=== PATIENT | female | born 1995 | race Caucasian/White ===

== ENCOUNTER 2017-07-07 20:50 | Emergency (ER) | payer OTHER ==
[2017-07-07 21:09] VITALS: RESP 18
--- NOTE | 2017-07-07 21:49 | ED ---
Seizure HPI - General Chief Complaint: Seizure Stated Complaint: weakness,poss seizure Time Seen by Provider: 07/07/17 21:39 Source: patient, EMS Mode of arrival: EMS Limitations: no limitations - History of Present Illness Initial Comments: This patient is 22-year-old woman who is here with her parents after she had a seizure. History is slightly limited as they continuously request transfer to [facility] as they are certain that she needs immediate shunt revision and they request to curtail evaluation here. The patient states that she was asymptomatic until having seizure tonight. The seizure occurred at 7:20 PM. Parents state that the last time that this happened she required shunt revision. Patient denies having any headache preceding. No fevers or chills. No neck pain or stiffness. No neurologic symptoms. MD Complaint: seizure Onset/Timin -: hour(s) Description of Episode: loss of consciousness -: minutes(s) Witnessed: yes - by bystander Trauma: No Seizure History: known seizure disorder Place: home Possible Precipitating Event: none Associated Symptoms: denies other symptoms Treatments Prior to Arrival: none - Related Data Home Medications Medication Instructions Recorded Confirmed HYDROcodone/APAP 5-325MG [[place] 1 tab PO BID PRN 07/07/17 07/07/17 5-325] Allergies Allergy/AdvReac Type Severity Reaction Status Date / Time gabapentin [From Neurontin] Allergy Swelling Verified 07/07/17 21:10 latex Allergy Rash/Hives Verified 07/07/17 21:10 phenytoin [From Dilantin] Allergy Rash/Hives Verified 07/07/17 21:10 Review of Systems ROS Statement: Those systems with pertinent positive or pertinent negative responses have been documented in the HPI. ROS Other: All systems not noted in ROS Statement are negative. 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 Absent: tenderness, meningismus Respiratory exam: Present: normal lung sounds bilaterally. Absent: respiratory distress, wheezes, rales, rhonchi, stridor Cardiovascular Exam: Present: regular rate (Rate 92 exam), normal rhythm, normal heart sounds. Absent: systolic murmur, diastolic murmur, rubs, gallop GI/Abdominal exam: Present: soft. Absent: distended, tenderness, guarding, rebound, rigid, mass Extremities exam: Present: normal inspection, normal capillary refill. Absent: pedal edema, calf tenderness Back exam: Present: normal inspection Neurological exam: Present: alert, oriented X3, CN II-XII intact. Absent: motor sensory deficit Skin exam: Present: warm, dry, intact, normal color. Absent: rash Course Vital Signs 07/07/17 07/07/17 21:02 22:29 Temperature 97.9 F 99.5 F Pulse Rate 106 H 122 H Respiratory 18 18 Rate Blood Pressure 136/76 128/73 O2 Sat by Pulse 100 99 Oximetry Medical Decision Making - Medical Decision Making Patient is 22-year-old woman presenting with a seizure, and family states that this is the same presentation she was having last time she had a shunt malfunction. Case discussed with the head stock transfer clerk at [facility]. They were able to reach her neurosurgeon, Dr. Madrigal, and will accept the patient for transfer there to have shunt evaluation. Patient and family did refuse other workup here. Disposition Clinical Impression: Generalized seizure Disposition: OTHER INSTITUTION NOT DEFINED Condition: Undetermined Instructions: Recurrent Seizures in Adults (ED) Is patient prescribed a controlled substance at d/c from ED?: No Referrals: Tigist Parker DO [Primary Care Provider] - 1-2 days - Out of Hospital Transfer - Req. Specs Out of Hospital Transfer - Requested Specifics: Other Emergency Center
[2017-07-07 22:36] VITALS: BP 128/73; PULSE 122; TEMP 99.5
== END 2017-07-07 22:48 | disposition other institution (70) ==
LOC: EC 20:50
DX: R56.9 Unspecified convulsions (principal); Z88.8 Allergy status to other drugs, medicaments and biological substances; Z91.040 Latex allergy status; Z98.2 Presence of cerebrospinal fluid drainage device
CPT/HCPCS: 99284

== ENCOUNTER → 2019-12-27 | Outpatient (CLI) | payer OTHER ==
--- NOTE | 2019-12-27 16:06 | XR ---
EXAMINATION TYPE: XR chest 2V DATE OF EXAM: 12/27/2019 COMPARISON: None INDICATION: Pain after fall TECHNIQUE: Frontal and lateral views of the chest are obtained. FINDINGS: The heart size is normal. The pulmonary vasculature is normal. The lungs are clear. No pneumothorax is evident. No displaced rib fractures are identified. IMPRESSION: 1. No acute pulmonary process.
--- NOTE | 2019-12-27 16:07 | XR ---
EXAMINATION TYPE: XR ribs LT DATE OF EXAM: 12/27/2019 COMPARISON: Chest x-ray same date HISTORY: Fall, pain TECHNIQUE: Two-view left RIBS FINDINGS: No acute displaced fractures are evident. No pneumothorax is evident on these images. IMPRESSION: 1. Normal two-view left RIBS
--- NOTE | 2019-12-27 16:08 | XR ---
EXAMINATION TYPE: XR shoulder complete LT DATE OF EXAM: 12/27/2019 COMPARISON: NONE HISTORY: Pain TECHNIQUE: Shoulder examined in 3 views FINDINGS: The humeral head articulates with the glenoid. The acromio-clavicular junction is normal. No acute fractures or dislocations are evident. A follow up study can be performed 7-10 days from acute trauma for continued pain. IMPRESSION: 1. Normal three-view left Shoulder
--- NOTE | 2019-12-27 16:08 | XR ---
EXAMINATION TYPE: XR lumbar spine 2 or 3V DATE OF EXAM: 12/27/2019 COMPARISON: None HISTORY: Fall, pain TECHNIQUE: Three-view lumbar spine FINDINGS: There 5 lumbar-type vertebral bodies. Pedicles are intact. Disc heights are preserved. Vert ebral body heights are preserved. There is a catheter present in the lower lumbar spine region. IMPRESSION: 1. No acute osseous abnormality lumbar spine
== END | disposition home or self-care (01) ==
LOC: RADXRMAIN 15:23
PROVIDERS: ATTEND Emergency Medicine
DX: S46.012A Strain of muscle(s) and tendon(s) of the rotator cuff of left shoulder, initial encounter (principal); S29.012A Strain of muscle and tendon of back wall of thorax, initial encounter; S39.012A Strain of muscle, fascia and tendon of lower back, initial encounter
CPT/HCPCS: 71046; 72100

== ENCOUNTER → 2020-01-06 | Outpatient (CLI) | payer OTHER ==
--- NOTE | 2020-01-06 19:43 | CT ---
EXAMINATION TYPE: CT brain wo/w con DATE OF EXAM: 01/06/2020 COMPARISON: None HISTORY: lump to posterior head, no injury CT DLP: 1891 mGycm Automated Exposure Control for Dose Reduction was Utilized. TECHNIQUE: CT scan of the head is performed with IV contrast.,CT scan of the head is performed withou t and with without and with IV Contrast, patient injected with 100 mL of Isovue 300. CLINICAL HISTORY: Palpable abnormality posteriorly COMPARISON: None. FINDINGS: Noncontrast images show no acute intracranial hemorrhage or midline shift. The ventricles and sulci are within normal limits in size. Postcontrast images show no suspicious enhancing intrapa renchymal mass. The globes are intact and the visualized sinuses are clear. There is a area of low at tenuation in the right parietal lobe extending from the right lateral ventricle which may be replaced previous encephalomalacia. There is a craniotomy defect on the left with a [employer] shunt catheter extending across the midline at the tip outside the lateral ventricle and should be correlated clinically. There is skin thickening sandi g the posterior lateral upper left calvarium which is nonspecific could be on the basis of previous s car. Correlate clinically. There is a more nodular mixed density extending off the posterior calvariu m on the left laterally which is of indeterminate etiology but appears to be chronic. Extends from th e periosteum and likely related to the [employer] shunt catheter IMPRESSION: 1. Postsurgical change with no evidence of hydrocephalus. Tip of the [employer] shunt appears to be outside o f the right lateral ventricle, correlate clinically. 2. Skin thickening along the posterior lateral left upper soft tissues likely on the basis of scar. M ore nodular extracranial density which opposes the periosteum of the left parietal bone posteriorly m ost likely is related to the [employer] shunt catheter. Correlate clinically to determine if this is the area of palpable abnormality. No history was given as to the exact location of the palpable abnormality.
== END | disposition home or self-care (01) ==
LOC: RADCTMAIN 18:14
PROVIDERS: ATTEND Family Medicine
DX: G43.009 Migraine without aura, not intractable, without status migrainosus (principal); Z98.2 Presence of cerebrospinal fluid drainage device
CPT/HCPCS: 70470; Q9967

== ENCOUNTER → 2020-02-06 | Outpatient (CLI) | payer OTHER ==
[2020-02-06 13:40] VITALS: BP 119/79; PULSE 80; RESP 16; TEMP 98.1
--- NOTE | 2020-02-06 14:03 | P.PAINCN ---
History of Present Illness - Reason for Consult Consult date: 02/06/20 - History of Present Illness This is a 24-year-old patient presented with a long-standing history of low back pain. She does have a complicated medical history, has a ventral peritoneal shunt which is now located in her lumbar spine at L4-5. Notes that she has had almost 100 brain and back surgeries involving her ventriculoperitoneal shunt. Pain is located in the low back and buttock area described as dull and aching with occasional sharp and stabbing. There is no radiation into her lower extremities. The pain tends it worse if she sits for long periods of time and taking one [place] 7.5 once a day seems to help with the pain. She does not endorse any weakness in her lower extremities. Has had her shunt looked at recently and there are no problems there is no plan for any interventions right now. In terms of management she saw [facility] who did a radiofrequency ablation at unknown levels in the lumbar spine which did not help at all. The medial branch blocks did provide relief, however she did not find any relief with the radiofrequency ablation. She has a trigger point injections in her upper back with a few days' relief. Hasn't physical therapy with no relief. As tried multitude of medications including Flexeril, Cymbalta, gabapentin none of which have helped her. Anti-inflammatory medications tend to make her stomach hurt quite a bit. Patient denies adverse drug effects from medications. Patient also denies new-onset weakness, bowel/bladder incontinence, or any other signs or symptoms of cauda equina syndrome. There are no signs of acute intoxication, and no i ndications of medication diversion or overuse. In addition to above, 13-point review of systems is also negative for chest pain, shortness of breath, changes in vision, changes in hearing, new onset weakness, abdominal pain, diarrhea, extreme fatigue, malaise, fever, skin changes, homicidal or suicidal ideation, or bowel or bladder incontinence. Physical exam: Vital Signs: Reviewed in EMR GENERAL: Well appearing, in no acute distress PSYCH: Mood and affect is appropriate. Awake, alert, and oriented SKIN: Skin color, texture, turgor normal, no rashes or lesions HEENT: Normocephalic, atraumatic. EOM intact CV: No pedal edema RESP: Respirations are unlabored, no audible wheezing GI: Abdomen non-distended MUSCULOSKELETAL: Bilateral upper and lower extremity strength is normal and symmetric. No atrophy or tone abnormalities are noted. Lumbar spine: Straight leg raising in the sitting position is negative for radicular pain. pain to palpation over the lumbar spine and paraspinous muscles. positive for pain with facet loading and back extension/rotation. Buttocks: pain to palpation over the PSIS, Oleksandr test is positive bilaterally Extremities: Peripheral joint ROM is full and pain free without obvious instability or laxity in all four extremities. No edema or skin discolorations noted. Gait: Gait is normal NEUR: Bilateral upper and lower extremity coordination and muscle stretch reflexes are physiologic and symmetric. Negative clonus. No loss of sensation is noted. Cranial nerves are grossly intact. Imaging: Lumbar Xray 12/2019 5 lumbar vertebral bodies. Disc heights are preserved. Vertebral body heights are preserved. Catheter present in the lower lumbar spine region. Shoulder X-ray 12/2019 Normal three-view left shoulder Assessment: 1. Low back pain 2. 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 Explanation: Diagnoses, prognoses, and multiple treatment options including but not limited to physical therapy, interventional therapies, medication management and surgery were discussed with the patient and all questions were answered to the patient's satisfaction. 2. Investigations: none 3. Counseling: The patient was counseled for 3 minutes on SMOKING CESSATION, BODY MASS INDEX, EXERCISE. Specifically, the patient was instructed regarding the importance of smoking cessation, weight control, and exercise in the context of both chronic pain and overall health. 4. Procedures: Proceed with bilateral SI joint injection. If these do not work we can consider cluneal nerve injection. I would not want to do any procedures involving her epidural space given that her shunt lies at the L4-L5 region 5. Consultations: None 6. Medications: This point she has tried so many medications and muscle resulted in adverse reactions such as sedation or drowsiness. Unclear what medications benefit for her, she is taking a very small amount of [place] which is helping her considerably 7. 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) brain shunt History of Any Multi-Drug Resistant Organisms: None Reported Additional Past Surgical History / Comment(s): brain shunt Past Psychological History: No Psychological Hx Reported Past Alcohol Use History: None Reported Past Drug Use History: None Reported Medications and Allergies Home Medications Medication Instructions Recorded Confirmed Type HYDROcodone/APAP 7.5-325MG [[place] 1 tab PO Q6HR PRN 02/06/20 02/06/20 History 7.5-325] Allergies Allergy/AdvReac Type Severity Reaction Status Date / Time gabapentin [From Neurontin] Allergy Swelling Verified 02/06/20 13:28 latex Allergy Rash/Hives Verified 02/06/20 13:28 phenytoin [From Dilantin] Allergy Rash/Hives Verified 02/06/20 13:28 PQRS Measure Charge Sheet PQRS Narrative: Smoking Status Never smoker Home Medications: Ambulatory Orders HYDROcodone/APAP 7.5-325MG [[place] 7.5-325] 1 tab PO Q6HR PRN 02/06/20
== END | disposition home or self-care (01) ==
LOC: PNWHC3 13:17
PROVIDERS: ATTEND Anesthesiology
DX: M46.1 Sacroiliitis, not elsewhere classified (principal); M54.5 Low back pain; Z98.2 Presence of cerebrospinal fluid drainage device
CPT/HCPCS: 99211

== ENCOUNTER 2020-02-28 05:58 | Day surgery (SDC) | payer OTHER ==
[2020-02-24 16:36] VITALS: BMI 27.3
[~2020-02-28 05:58] MED LIST: LACTATED RINGERS 1,000 ML IV SCH
[2020-02-28] MEDS ORDERED: LIDOCAINE 1% (10MG/ML) FOR IV START INTRADERMA ONE (06:30)
[2020-02-28 06:31] VITALS: RESP 16; TEMP 98.6
[2020-02-28] MEDS ORDERED: TRIAMCINOLONE ACETONIDE 40 MG/ML 1 ML VIAL ONE (06:55)
[2020-02-28] MEDS ORDERED: MIDAZOLAM 2 MG/2 ML VIAL ONE (06:55)
[2020-02-28] MEDS ORDERED: ROPIVACAINE 5MG/ML 20ML VIAL ONE (06:55)
--- NOTE | 2020-02-28 07:13 | P.PCN ---
Date of Procedure: 02/28/20 Surgeon: Alessio Rangel Pathology: none sent Condition: stable Disposition: PACU Description of Procedure: Preoperative diagnoses= sacroiliac joint dysfunction and sacroiliitis bilateral ly Postoperative diagnoses= same as preoperative diagnosis. Procedure= bilateral sacroiliac joint steroid injection under fluoroscopic guidance. Anesthesia= local anesthesia with lidocaine 1% and IV moderate conscious sedation with Versed only Estimated blood loss=minimal. Procedure indication= the patient had a history of severe chronic low back pain, diagnosed with sacroiliitis and lumbar sacral facet arthropathy unresponsive to conservative treatment. Procedure description= the patient was seen and identified in the preoperative holding area, risks and benefits and alternative of the procedure and possible complications discussed with the patient, patient signed the consent. an IV was started, and vital signs were monitored and were stable throughout the procedur e, patient was placed in the prone position or table and the lumbosacral area was prepped and draped with a sterile fashion, vital signs were closely monitored during the procedure.The sacroiliac joint was identified on the AP view of fluoroscopy then the C-arm was tilted to the contralateral oblique position to superimpose the anterior and posterior joint lines on each other and to have a unified joint line with the target point at the inferior one third of this line. I used 22-gauge 3-1/2 inch Quincke spinal needle for this procedure and after getting into the sacroiliac joint I injected 20 mg of Kenalog +2 MLS of Ropivacaine 0.5%. The opposite side was done in the same manner using also 20 mg of Kenalog. Patient tolerated the procedure well without any complication, The patient returned to supine position after the back was cleaned and a Band- Aid applied, the patient transported to recovery room in stable condition and he was monitored for 30 minutes before she was discharged home in stable condition . patient will follow up with the pain clinic in a few weeks. A copy of the needle placement was saved to the C-arm machine.
[2020-02-28] MEDS ORDERED: IV FLUID CONTINUATION 1,000 ML IV ONE ×2 (07:16)
[2020-02-28 07:34] VITALS: BP 120/84; PULSE 79
--- NOTE | 2020-02-28 12:27 | FL ---
Fluoroscopy HISTORY: Pain 7 seconds fluoroscopy time supplied to the referring clinician. 2 intraoperative C-arm images docume nt the procedure. See dictated report from anesthesia.
== END 2020-02-28 07:47 | disposition home or self-care (01) ==
LOC: ORPAIN 05:58
PROVIDERS: ATTEND Anesthesiology
DX: G89.29 Other chronic pain (principal); M46.1 Sacroiliitis, not elsewhere classified; M53.3 Sacrococcygeal disorders, not elsewhere classified; M47.817 Spondylosis without myelopathy or radiculopathy, lumbosacral region; G40.909 Epilepsy, unspecified, not intractable, without status epilepticus; Z88.8 Allergy status to other drugs, medicaments and biological substances
CPT/HCPCS: 27096; 81025; J2250; J3301; J2795

== ENCOUNTER → 2020-05-07 | Outpatient (CLI) | payer OTHER ==
--- NOTE | 2020-05-08 14:53 | ECHOF ---
Referral Reason:R00.2 Palpitations, M54.5 Lower back pain MEASUREMENTS -------- HEIGHT: 154.9 cm WEIGHT: 60.8 kg BP: IVSd: 0.8 cm (0.6 - 1.1) LVIDd: 4.3 cm (3.9 - 5.3) LVPWd: 0.8 cm (0.6 - 1.1) IVSs: 1.1 cm LVIDs: 3.1 cm LVPWs: 1.4 cm RVIDd: 2.3 cm (< 3.3) LAESV Index (A-L): 25.14 ml/m Ao Diam: 2.8 cm (2.0 - 3.7) AV Cusp: 2.0 cm (1.5 - 2.6) EPSS: 0.7 cm MV E Paul: 0.70 m/s MV DecT: 220 ms MV A Paul: 0.71 m/s MV E/A Ratio: 0.99 RAP: 5.00 mmHg RVSP: 13.19 mmHg MV EF SLOPE: 107.20 mm/s (70 - 150) MV EXCURSION: 22.91 mm (> 18.000) FINDINGS -------- Sinus rhythm. This was a technically good study. LV size, wall thickness and systolic function are normal, with an EF greater than 55%. The left neelam tricular size is normal. The right ventricle is normal in size. Normal LA size by volume 22+/-6 ml/m2. The right atrial size is normal. The aortic valve is trileaflet, and appears structurally normal. No aortic stenosis or regurgitation. Mild mitral regurgitation is present. Mild tricuspid regurgitation present. The right ventricular systolic pressure, as measured by Doppl er, is 13.19mmHg. There is no pulmonic regurgitation present. The aortic root size is normal. There is no pericardial effusion. CONCLUSIONS -------- 1. LV size, wall thickness and systolic function are normal, with an EF greater than 55%. 2. The left ventricular size is normal. 3. The right ventricle is normal in size. 4. Normal LA size by volume 22+/-6 ml/m2. 5. The right atrial size is normal. 6. The aortic valve is trileaflet, and appears structurally normal. No aortic stenosis or regurgitati on. 7. Mild mitral regurgitation is present. 8. Mild tricuspid regurgitation present. 9. The right ventricular systolic pressure, as measured by Doppler, is 13.19mmHg. 10. The aortic root size is normal. 11. There is no pericardial effusion. PLANT TECHNICAL SPECIALIST: Jacquelyn Ross RDCS
== END | disposition home or self-care (01) ==
LOC: RADECHMAIN 13:40
PROVIDERS: ATTEND Family Medicine
DX: I08.1 Rheumatic disorders of both mitral and tricuspid valves (principal); Z82.41 Family history of sudden cardiac death
CPT/HCPCS: 93306

== ENCOUNTER 2020-06-24 08:32 | Emergency (ER) | payer OTHER ==
[2020-06-24] MEDS ORDERED: ACETAMINOPHEN TAB 500 MG TAB PO STA (08:45)
[2020-06-24] MEDS ORDERED: SODIUM CHLORIDE 0.9% 1,000 ML IV STA (08:47)
--- NOTE | 2020-06-24 08:49 | ED ---
General Adult HPI - General Chief complaint: Back Pain/Injury Stated complaint: Back Pain, shunt in back Time Seen by Provider: 06/24/20 08:38 Source: patient Mode of arrival: wheelchair Limitations: physical limitation - History of Present Illness Initial comments: Dictation was produced using [employer] dictation software. please excuse any grammatical, word or spelling errors. This patient was cared for during a federal and state declared state of emergency secondary to Covid 19 Chief Complaint: 25-year-old male past medical history of chronic pain, CSF shunt presents with fever and lower back pain History of Present Illness: A 25-year-old female she states for the last several days she's been having worsening back pain. Patient states she has severe pain in her back. She does have history of a pain device in that area. She has history of chronic pain. States that she also has been having constitutional symptoms. States that her pain is really bad whenever she tries to ambulate. She denies any numbness [place] or weakness to her lower extremities. Patient also complains of lymphadenopathy to the left submandibular area. She also has sore throat that is mostly worse when she tries to swallow. He does not have any drooling. She doesn't have any respiratory symptoms. No runny nose. Denies any cough or shortness of breath. No abdominal pain. Denies any urinary symptoms. The ROS documented in this emergency department record has been reviewed and confirmed by me. Those systems with pertinent positive or negative responses have been documented in the HPI. All other systems are other negative and/or noncontributory. PHYSICAL EXAM: General Impression: Alert and oriented x3, not in acute distress HEENT: Normocephalic atraumatic, extra-ocular movements intact, pupils equal and reactive to light bilaterally, mucous membranes moist. Cardiovascular: Heart regular rate and rhythm Chest: Able to complete full sentences, no retractions, no tachypnea Abdomen: abdomen soft, non-tender, non-distended, no organomegaly Musculoskeletal: Pulses present and equal in all extremities, no peripheral edema Back: Surgical scar is clean dry intact, no midline palpatory tenderness Motor: no focal deficits noted Neurological: CN II-XII grossly intact, no focal motor or sensory deficits noted Skin: Intact with no visualized rashes Psych: Normal affect and mood ED course: 25-year-old female presents with constitutional symptoms and lower back pain signs upon arrival shows temperature 102.3, heart rate of 130. Laboratory evaluation obtained. Leukocytosis of 14.7. Metabolic panel shows no acute processes. CRP elevated at 73.8. Urinalysis negative for infection. Influenza A, B, RSV and [place] 19 are negative. Chest x-ray is nonacute. Computed tomography scan of the abdomen and pelvis was obtained with contrast. There is demonstration of left-sided lumbar peritoneal shunt with ascitic fluid near the distal end of the shunt catheter. There is a 1.3 cm recently ruptured follicle of the left ovary. There are a few hepatic lesions. There is also findings of enteritis versus mild ileus. Patient given Tylenol. Repeat vital signs shows improvement of pyrexia. Patient reevaluated at bedside. She reports some slight improvement. Given that there is no other obvious signs of patient's fever there is concern that she has an infectious spinal process. We do not have MRI available at our facility. Patient states she does have a history of infected shunt issues. Case is discussed with Dr. 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 Salas. Dr. Crouch requested patient be transferred to the ED at [facility]. Accepting ER physician is Dr. Holbrook. Patient started on vancomycin and Zosyn. She is agreeable with disposition plan. - Related Data Home Medications Medication Instructions Recorded Confirmed HYDROcodone/APAP 7.5-325MG [[place]bury 1 tab PO DAILY PRN 02/06/20 06/24/20 7.5-325] Escitalopram [Lexapro] 10 mg PO DAILY 06/24/20 06/24/20 Meloxicam [Mobic] 15 mg PO DAILY 06/24/20 06/24/20 Allergies Allergy/AdvReac Type Severity Reaction Status Date / Time gabapentin [From Neurontin] Allergy Swelling Verified 06/24/20 11:01 latex Allergy Rash/Hives Verified 06/24/20 11:01 phenytoin [From Dilantin] Allergy Rash/Hives Verified 06/24/20 11:01 Review of Systems ROS Statement: Those systems with pertinent positive or pertinent negative responses have been documented in the HPI. ROS Other: All systems not noted in ROS Statement are negative. 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 pat gpa brain tumor General Exam Limitations: physical limitation Course Vital Signs 06/24/20 06/24/20 08:36 10:47 Temperature 102.3 F H 98.3 F Pulse Rate 130 H 82 Respiratory 20 18 Rate Blood Pressure 105/67 105/61 O2 Sat by Pulse 98 97 Oximetry Medical Decision Making - Lab Data Result diagrams: 06/24/20 09:04 06/24/20 09:04 Lab Results 06/24/20 06/24/20 06/24/20 Range/Units 09:04 09:04 09:04 WBC 14.7 H (3.8-10.6) k/uL RBC 4.87 (3.80-5.40) m/uL Hgb 14.4 (11.4-16.0) gm/dL Hct 42.6 (34.0-46.0) % MCV 87.4 (80.0-100.0) fL MCH 29.7 (25.0-35.0) pg MCHC 33.9 (31.0-37.0) g/dL RDW 12.4 (11.5-15.5) % Plt Count 154 (150-450) k/uL MPV 9.1 Neutrophils % 92 % Lymphocytes % 4 % Monocytes % 4 % Eosinophils % 0 % Basophils % 0 % Neutrophils # 13.5 H (1.3-7.7) k/uL Lymphocytes # 0.5 L (1.0-4.8) k/uL Monocytes # 0.6 (0-1.0) k/uL Eosinophils # 0.0 (0-0.7) k/uL Basophils # 0.0 (0-0.2) k/uL Sodium (137-145) mmol/L Potassium (3.5-5.1) mmol/L Chloride (98-107) mmol/L Carbon Dioxide (22-30) mmol/L Anion Gap mmol/L BUN (7-17) mg/dL Creatinine (0.52-1.04) mg/dL Est GFR (CKD-EPI)AfAm (>60 ml/min/1.73 sqM) Est GFR (CKD-EPI)NonAf (>60 ml/min/1.73 sqM) Glucose (74-99) mg/dL Calcium (8.4-10.2) mg/dL Total Bilirubin (0.2-1.3) mg/dL AST (14-36) U/L ALT (4-34) U/L Alkaline Phosphatase (38-126) U/L C-Reactive Protein (<10.0) mg/L Total Protein (6.3-8.2) g/dL Albumin (3.5-5.0) g/dL Urine Color Yellow Urine Appearance Clear (Clear) Urine pH 5.0 (5.0-8.0) Ur Specific [place] 1.026 (1.001-1.035) Urine Protein Trace H (Negative) Urine Glucose (UA) Negative (Negative) Urine Ketones 1+ H (Negative) Urine Blood Moderate H (Negative) Urine Nitrite Negative (Negative) Urine Bilirubin Negative (Negative) Urine Urobilinogen <2.0 (<2.0) mg/dL Ur Leukocyte Esterase Trace H (Negative) Urine RBC 1 (0-5) /hpf Urine WBC 2 (0-5) /hpf Ur Squamous Epith Cells 4 (0-4) /hpf Urine Bacteria Few H (None) /hpf Urine Mucus Rare H (None) /hpf Urine HCG, Qual Not Detected (Not Detectd) Influenza Type A (PCR) (Not Detectd) Influenza Type B (PCR) (Not Detectd) RSV (PCR) (Not Detectd) SARS-CoV-2 (PCR) (Not Detectd) 06/24/20 06/24/20 Range/Units 09:04 09:04 WBC (3.8-10.6) k/uL RBC (3.80-5.40) m/uL Hgb (11.4-16.0) gm/dL Hct (34.0-46.0) % MCV (80.0-100.0) fL MCH (25.0-35.0) pg MCHC (31.0-37.0) g/dL RDW (11.5-15.5) % Plt Count (150-450) k/uL MPV Neutrophils % % Lymphocytes % % Monocytes % % Eosinophils % % Basophils % % Neutrophils # (1.3-7.7) k/uL Lymphocytes # (1.0-4.8) k/uL Monocytes # (0-1.0) k/uL Eosinophils # (0-0.7) k/uL Basophils # (0-0.2) k/uL Sodium 135 L (137-145) mmol/L Potassium 3.6 (3.5-5.1) mmol/L Chloride 100 (98-107) mmol/L Carbon Dioxide 23 (22-30) mmol/L Anion Gap 12 mmol/L BUN 13 (7-17) mg/dL Creatinine 0.67 (0.52-1.04) mg/dL Est GFR (CKD-EPI)AfAm >90 (>60 ml/min/1.73 sqM) Est GFR (CKD-EPI)NonAf >90 (>60 ml/min/1.73 sqM) Glucose 111 H (74-99) mg/dL Calcium 8.9 (8.4-10.2) mg/dL Total Bilirubin 1.1 (0.2-1.3) mg/dL AST 21 (14-36) U/L ALT 20 (4-34) U/L Alkaline Phosphatase 49 (38-126) U/L C-Reactive Protein 73.8 H (<10.0) mg/L Total Protein 7.2 (6.3-8.2) g/dL Albumin 4.4 (3.5-5.0) g/dL Urine Color Urine Appearance (Clear) Urine pH (5.0-8.0) Ur Specific [place] (1.001-1.035) Urine Protein (Negative) Urine Glucose (UA) (Negative) Urine Ketones (Negative) Urine Blood (Negative) Urine Nitrite (Negative) Urine Bilirubin (Negative) Urine Urobilinogen (<2.0) mg/dL Ur Leukocyte Esterase (Negative) Urine RBC (0-5) /hpf Urine WBC (0-5) /hpf Ur Squamous Epith Cells (0-4) /hpf Urine Bacteria (None) /hpf Urine Mucus (None) /hpf Urine HCG, Qual (Not Detectd) Influenza Type A (PCR) Not Detected (Not Detectd) Influenza Type B (PCR) Not Detected (Not Detectd) RSV (PCR) Not Detected (Not Detectd) SARS-CoV-2 (PCR) Not Detected (Not Detectd) Disposition Clinical Impression: Fever, Back pain Disposition: OTHER INSTITUTION NOT DEFINED Condition: Fair Referrals: Alex Ramirez DO [Primary Care Provider] - 1-2 days Time of Disposition: 11:29 - Out of Hospital Transfer - Req. Specs Out of Hospital Transfer - Requested Specifics: Other Emergency Center ([facility])
[2020-06-24 09:25] LABS: Appearance,Urine Clear (Clear); Bacteria,Urine Few /hpf; Bilirubin,Urine Negative (Negative); Blood,Urine Moderate (Negative); Color,Urine Yellow; Glucose,Urine (UA) Negative (Negative); Ketones,Urine 1+ (Negative); Leukocyte Esterase,Urine Trace (Negative); Mucus,Urine Rare /hpf; Nitrite,Urine Negative (Negative); Protein,Urine Trace (Negative); RBC,Urine 1 /hpf (0-5); Specific Gravity,Urine 1.026 (1.001-1.035); Squamous Epithelial Cell,Urine 4 /hpf (0-4); Urobilinogen,Urine <2.0 mg/dL (<2.0); WBC,Urine 2 /hpf (0-5)
[2020-06-24 09:31] LABS: ALT 20 U/L (4-34); AST 21 U/L (14-36); African American GFR (CKD) >90 (>60 ml/min/1.73 sqM); Albumin 4.4 g/dL (3.5-5.0); Alkaline Phosphatase 49 U/L (38-126); Anion Gap 12 mmol/L; Blood Urea Nitrogen 13 mg/dL (7-17); C Reactive Protein 73.8 mg/L (<10.0); Calcium 8.9 mg/dL (8.4-10.2); Carbon Dioxide 23 mmol/L (22-30); Chloride 100 mmol/L (98-107); Glucose 111 mg/dL (74-99); Non-African American GFR(CKD) >90 (>60 ml/min/1.73 sqM); Potassium 3.6 mmol/L (3.5-5.1); Sodium 135 mmol/L (137-145); Total Bilirubin 1.1 mg/dL (0.2-1.3); Total Protein 7.2 g/dL (6.3-8.2)
--- NOTE | 2020-06-24 09:33 | XR ---
EXAMINATION TYPE: XR chest 1V portable DATE OF EXAM: 06/24/2020 COMPARISON: 12/27/2019. HISTORY: Fever. TECHNIQUE: Single frontal view of the chest is obtained. FINDINGS: There is no focal air space opacity, pleural effusion, or pneumothorax seen. The cardiac silhouette size is within normal limits. The osseous structures are intact. IMPRESSION: No acute process.
[2020-06-24 09:50] LABS: Basophils % (A) 0 %; Eosinophils % (A) 0 %; HCT 42.6 % (34.0-46.0); HGB 14.4 gm/dL (11.4-16.0); Lymphocytes # (A) 0.5 k/uL (1.0-4.8); Lymphocytes % (A) 4 %; MCH 29.7 pg (25.0-35.0); MCHC 33.9 g/dL (31.0-37.0); MCV 87.4 fL (80.0-100.0); Mean Platelet Volume 9.1; Monocytes # (A) 0.6 k/uL (0-1.0); Monocytes % (A) 4 %; Neutrophils # (A) 13.5 k/uL (1.3-7.7); Neutrophils % (A) 92 %; Platelet Count 154 k/uL (150-450); RBC 4.87 m/uL (3.80-5.40); RDW 12.4 % (11.5-15.5); WBC 14.7 k/uL (3.8-10.6)
[2020-06-24] MEDS ORDERED: MORPHINE SULFATE 4 MG/ML SYRINGE IV STA (09:50)
[2020-06-24 10:51] VITALS: BP 105/61; PULSE 82; RESP 18; TEMP 98.3
--- NOTE | 2020-06-24 11:00 | CT ---
EXAMINATION TYPE: CT abdomen pelvis w con DATE OF EXAM: 06/24/2020 COMPARISON: None HISTORY: 25-year-old female Fever, back pain TECHNIQUE: Contiguous axial scanning of the abdomen and pelvis following administration of 100 ml Iso renny 300 IV contrast. Delayed images through the kidneys and coronal/sagittal reconstructions perform ed. CT DLP: 635.7 mGycm Automated exposure control for dose reduction was used. FINDINGS: Heart normal size without pericardial effusion. Lung bases clear without pleural effusion. Hypodense 2.7 cm left hepatic dome lesion does not clearly show any enhancement on the delayed kidney images. It has intermediate attenuation suggesting a possible complicated cyst. 1 cm right hepatic d ome lesion could be the same. 1.4 cm anterior mid liver lesion becomes less apparent on the delayed k idney images, possible hemangioma. Portal venous system is patent. No biliary ductal dilatation. Gallbladder, adrenal glands, kidneys, spleen, and pancreas appear within normal limits. Symmetric upt jonatan and excretion of contrast from both kidneys. Mild diffuse fold thickening along the gastric fundus and body may be due to nondistention. No dilated small bowel or free air. Normal appendix visualized. Moderate stool in the right side of t he colon. No pericolonic inflammatory change. Some scattered air-fluid levels in mid and lower abdominal small bowel loops. A left-sided lumbar per itoneal shunt catheter is present. It is looped multiple times in the pelvis or moderate ascites flui d is present. Bladder is nondistended. Uterus is anteverted. Peripherally enhancing cystic structure measuring 1.3 cm and the left ovary suggesting a recently ruptured follicle or functional cyst. Follicular changes in the right ovary. No pelvic lymphadenopathy seen. A shunt catheter enters the spinal canal at the L1-L2 right interlaminar space. No abnormal fluid col lection is seen along the subcutaneous course of the catheter. Bones: No osseous destructive process. IMPRESSION: 1. LEFT-SIDED LUMBAR PERITONEAL SHUNT CATHETER. THE CATHETER IS LOOPED MULTIPLE TIMES IN THE PELVIS. THE SUBCUTANEOUS COURSE OF THE CATHETER HAS NO ABNORMAL FLUID COLLECTION ALONG ITS LENGTH. 2. MODERATE PELVIC ASCITES FLUID COULD IN PART BE PHYSIOLOGIC OR COULD BE A CONSEQUENCE OF THE SHUNT CATHETER. 3. A 1.3 CM RECENTLY RUPTURED FOLLICLE OR FUNCTIONAL CYST OF THE LEFT OVARY. 4. MILD DIFFUSE FOLD THICKENING ALONG THE GASTRIC FUNDUS AND BODY MAY BE DUE TO NONDISTENTION OR RADHA RITIS. 5. A FEW HEPATIC LESIONS MEASURING UP TO 2.7 CM, PROBABLY HEMANGIOMAS OR COMPLICATED CYSTS. OTHER ZEE OLOGY NOT EXCLUDED AT THIS TIME. NONEMERGENT FOLLOW-UP DYNAMIC CONTRAST ENHANCED LIVER MRI CAN FURTHE R ASSESS. 6. NONOBSTRUCTIVE BOWEL GAS PATTERN BUT WITH SOME SCATTERED SMALL BOWEL AIR-FLUID LEVELS IN THE MID A ND LOWER ABDOMEN COULD REPRESENT AN ENTERITIS OR MILD ILEUS.
[2020-06-24] MEDS ORDERED: VANCOMYCIN IV PER PHARMACY 1 EACH MISC MISCELLANE PRN (11:04)
[2020-06-24] MEDS ORDERED: PIPERACILLIN-TAZOBACTAM 3.375 GM in SODIUM CHLORIDE 0.9% 100 ML IVPB STA (11:05)
[2020-06-24] MEDS ORDERED: VANCOMYCIN 1,250 MG in SODIUM CHLORIDE 0.9% 250 ML IVPB ONE (11:15)
[2020-06-24 12:19] LABS: Erythrocyte Sedimentation Rate 12 mm/hr (0-20)
[2020-06-24] MEDS ORDERED: VANCOMYCIN 1,250 MG in SODIUM CHLORIDE 0.9% 250 ML IVPB SCH (23:00)
== END 2020-06-24 12:24 | disposition other institution (70) ==
LOC: EC 08:32
DX: R50.9 Fever, unspecified (principal); M54.5 Low back pain; Z79.1 Long term (current) use of non-steroidal anti-inflammatories (NSAID); Z79.899 Other long term (current) drug therapy; Z88.8 Allergy status to other drugs, medicaments and biological substances; Z91.040 Latex allergy status
CPT/HCPCS: 99285; 96365; 96367; 96375; 96361; 36415; 80053; 85652; 85025; 86140; 81001; 81025; 87040; 87636; 71045; 74177; J2543; J3370; J2270; Q9967

== ENCOUNTER → 2020-07-17 | Outpatient (CLI) | payer OTHER ==
--- NOTE | 2020-07-17 14:20 | US ---
EXAMINATION TYPE: US pelvic complete DATE OF EXAM: 07/17/2020 COMPARISON: CT June 24, 2020 CLINICAL HISTORY: N83.202 Ovarian cyst, left side.Left ovarian cyst of 1.3cm was seen on recent CT. P atient stated left sided pain has subsided and now has right sided pelvic pain x 2 days; TECHNIQUE: Transabdominal (TA). Transabdominal sonographic images of the pelvis were acquired. Date of LMP: 06/28/2020 EXAM MEASUREMENTS: Uterus: 8.1 x 4.7 x 3.7 cm Endometrial Stripe: 1.2 cm Right Ovary: 4.7 x 4.1 x 3.9 cm Left Ovary: 3.4 x 2.2 x 2.5 cm 1. Uterus: Anteverted 2. Endometrium: thickness is wnl for day 19 LMP 3. Right Ovary: enlarged ovary with complex ovarian cyst = 3.9 x 3.4 x 3.5cm. 4. Left Ovary: small follicular cysts seen today Spectral, color and waveform Doppler imaging shows good arterial and venous flow within the ovaries . 5. Bilateral Adnexa: wnl 6. Posterior cul-de-sac: wnl Heterogeneous anteverted uterus. Endometrial stripe measures within normal limits for last known mens trual period June 28. No free fluid in pelvis. Both ovaries are seen, right slightly larger than left. There is 3.9 cm slightly irregular cystic les ion right ovary with reticular avascular internal material. IMPRESSION: New 3.9 cm hemorrhagic cyst right ovary is felt present. Orads 2 lesion. Almost certainly benign.
== END | disposition home or self-care (01) ==
LOC: RADUSWWP 13:41
PROVIDERS: ATTEND Family Medicine
DX: N83.202 Unspecified ovarian cyst, left side (principal)
CPT/HCPCS: 76856

== ENCOUNTER → 2020-07-20 | Outpatient (CLI) | payer OTHER ==
--- NOTE | 2020-07-23 11:56 | MR ---
EXAMINATION TYPE: MR abdomen wo/w con DATE OF EXAM: 07/20/2020 COMPARISON: CT abdomen and pelvis June 24, 2020 HISTORY: Neoplasm of uncertain behavior of liver. Abnormal CT, liver lesions. CONTRAST: Standard multiplanar, multisequence MRI departmental protocol utilizing 6.5 mL intravenous Gadavist g adolinium contrast. Imaging performed of the abdomen focusing on the liver. FINDINGS: Liver: Liver is overall upper limits of normal in size. Corresponding to CT there are several lesions identified. Largest in the lateral segment left hepatic dome has slightly lobulated contour measurin g 2.6 x 2.5 cm with T1 hypointensity and T2 hyperintensity, there is slight nodular progressive perip heral enhancement on dynamic postcontrast images, relatively slow filling, findings consistent with b enign hemangioma. Similar findings are seen in the right hepatic lobe 1.7 x 1.6 cm lesion coronal graciela ge 6. There is third lesion with some delayed peripheral and linear enhancement right hepatic lobe an teriorly measuring 1.1 cm coronal image 12. Finally there is a 3 mm nonenhancing lesion right hepatic lobe image 42 series 1201 2 small to further characterize presumed benign. No significant signal andrez pout in the liver. No biliary dilatation. No surrounding ascites. Patent hepatic veins draining into IVC. Patent main portal vein Other: Lung bases are clear. The spleen, pancreas, both adrenal glands are within normal limits. No c oncerning renal mass or hydronephrosis. Patient has little intra-abdominal fat. No bowel dilatation. No AAA. Visualized osseous structures are intact. IMPRESSION: There are 3 liver lesions measuring up to 2.6 cm in size, dynamic postcontrast MRI is con sistent with benign hemangiomas slightly atypical with more delayed filling than normal noted. There are still presumed benign. No worrisome solid or cystic intrahepatic mass noted.
== END | disposition home or self-care (01) ==
LOC: RADMRIMAIN 19:59
PROVIDERS: ATTEND Physician Assistant Medical
DX: D37.6 Neoplasm of uncertain behavior of liver, gallbladder and bile ducts (principal); K76.9 Liver disease, unspecified
CPT/HCPCS: 74183; A9585

== ENCOUNTER → 2021-07-03 | Outpatient (CLI) | payer OTHER ==
--- NOTE | 2021-07-03 19:07 | CT ---
EXAMINATION TYPE: CT brain wo/w con DATE OF EXAM: 07/03/2021 COMPARISON: CT dated 01/06/2020 HISTORY: h/o headaches and dizziness x2 weeks, h/o shunt placement CT DLP: 2196 mGycm Automated exposure control for dose reduction was used. TECHNIQUE: CT scan of the brain is performed without and with IV contrast administration. FINDINGS: Unchanged position of the known left transparietal STONE BELT SANDER shunt. Stable ventricular size without evidence of interval size progression or signs of ventricular obstruction. Stable small areas of encephalomal acia in the superior aspects of the parietal lobes, seen bilaterally. Incidental findings reduced farrah iber of the intracranial venous sinuses as compared to the previous CT scan, of unknown clinical sign ificance. No acute intracranial hemorrhage. No gross acute cortical infarct. No midline shift or herniation. Un remarkable basal cisterns, sella and CP angles. No gross space-occupying lesion, vasogenic edema or m ass effect. No area of abnormal enhancement, meningeal thickening or hyperenhancement. Unremarkable orbits. Clear visualized paranasal sinuses and mastoid air cells. Unremarkable remainder of the calvarial bones. IMPRESSION: Reduced caliber of the intracranial venous sinuses as compared to the previous CT scan, of unknown cl inical significance. Further neurology/neurosurgery consultation can be considered. No convincing sariah dence of venous sinus thrombosis. Otherwise stable condition as described above.
== END | disposition home or self-care (01) ==
LOC: RADCTMAIN 16:36
PROVIDERS: ATTEND Family Medicine
DX: R90.89 Other abnormal findings on diagnostic imaging of central nervous system (principal); G43.009 Migraine without aura, not intractable, without status migrainosus; Z98.2 Presence of cerebrospinal fluid drainage device
CPT/HCPCS: 70470; Q9967

== ENCOUNTER → 2021-12-05 | Outpatient (CLI) | payer OTHER ==
--- NOTE | 2021-12-06 08:08 | XR ---
EXAMINATION TYPE: XR chest 2V DATE OF EXAM: 12/05/2021 COMPARISON: NONE TECHNIQUE: PA and lateral views submitted. HISTORY: Cough FINDINGS: The lungs are clear and there is no pneumothorax, pleural effusion, or focal pneumonia. Heart size normal. No overt failure. IMPRESSION: 1. No acute process.
== END | disposition home or self-care (01) ==
LOC: RADXRYALE 16:58
PROVIDERS: ATTEND Physician Assistant
DX: R07.9 Chest pain, unspecified (principal); R05.9 Cough, unspecified
CPT/HCPCS: 71046

== ENCOUNTER → 2021-12-13 | Outpatient (CLI) | payer OTHER ==
--- NOTE | 2021-12-13 15:35 | XR ---
Lumbosacral spine HISTORY: Low back pain 5 views of lumbosacral spine correlated prior lumbar spine 12/27/2019 1 lumbar vertebral bodies show preserved height, alignment, and bone mineralization. Disc spaces are maintained. No evident spondylolysis. Postprocedural changes are again seen. Mild loss of disc height L5-S1. IMPRESSION: Essentially stable exam. Mild degenerative disc changes suspected.
== END | disposition home or self-care (01) ==
LOC: RADXRYALE 12:16
PROVIDERS: ATTEND Physician Assistant
DX: M54.50 Low back pain, unspecified (principal)
CPT/HCPCS: 72110

== ENCOUNTER 2022-08-11 10:03 | Outpatient (CLI) | payer OTHER ==
[2022-08-11] MEDS ORDERED: LACTATED RINGERS 1,000 ML IV SCH (10:30)
[2022-08-11 10:54] LABS: Basophils % (A) 0 %; Eosinophils # (A) 0.1 k/uL (0-0.7); Eosinophils % (A) 1 %; HCT 38.4 % (34.0-46.0); HGB 12.7 gm/dL (11.4-16.0); Lymphocytes # (A) 1.4 k/uL (1.0-4.8); Lymphocytes % (A) 15 %; MCH 29.1 pg (25.0-35.0); MCHC 33.2 g/dL (31.0-37.0); MCV 87.9 fL (80.0-100.0); Mean Platelet Volume 10.4; Monocytes # (A) 0.5 k/uL (0-1.0); Monocytes % (A) 5 %; Neutrophils # (A) 7.5 k/uL (1.3-7.7); Neutrophils % (A) 78 %; Platelet Count 220 k/uL (150-450); RBC 4.37 m/uL (3.80-5.40); RDW 13.2 % (11.5-15.5); WBC 9.6 k/uL (3.8-10.6)
--- NOTE | 2022-08-11 11:15 | US ---
EXAMINATION TYPE: US OB >= 14 wk fetus DATE OF EXAM: 08/11/2022 COMPARISON: None CLINICAL INDICATION: Female, 27 years old with history of Patient fall; Patient states she fell on he r side today. TECHNIQUE: Transabdominal (TA) GESTATIONAL AGE / DATING Physician Established: (33 weeks/0 days) EDC: 09/29/2022 Dates by Current Scan: (32 weeks/3 days) EDC: 10/03/2022 Beta HCG (if available): Not available at this time SURVEY IUP: Single PLACENTA: Fundal PREVIA: No Previa TAVO: 11.7 cm Normal CERVICAL LENGTH (transabdominal: norm > 3.0cm): 3.1 cm BIOMETRY PRESENTATION: Vertex BPD: 7.9 cm 31 weeks / 5 days HC: 28.7 cm 31 weeks / 4 days AC: 27.4 cm 31 weeks / 4 days FL: 6.8 cm 34 weeks / 6 days ESTIMATED WEIGHT IN GRAMS: 1992 grams ESTIMATED WEIGHT IN LBS/OZ: 4 lbs. 6 oz. 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 IMPRESSION: 1. Single live intrauterine with established gestational age of 33 weeks 0 days. Current ul trasound biometry is slightly smaller at 32 weeks 3 days (27% EFW). 2. Note that this exam was not performed as a survey. 3. Cephalic presentation. Fundal placenta.
[2022-08-11 12:36] VITALS: BP 115/55; PULSE 98; RESP 18; TEMP 97.6
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
== END 2022-08-11 11:45 | disposition home or self-care (01) ==
LOC: FBPOP 10:03
PROVIDERS: ATTEND Obstetrics & Gynecology
DX: O26.893 Other specified pregnancy related conditions, third trimester (principal); Z3A.33 33 weeks gestation of pregnancy; Z88.8 Allergy status to other drugs, medicaments and biological substances; Z91.040 Latex allergy status
CPT/HCPCS: 59025; 76805; 85025; 96360; 99215

== ENCOUNTER 2022-09-13 03:05 | Outpatient (CLI) | payer OTHER ==
[2022-09-13 04:50] VITALS: BP 129/78; PULSE 75; RESP 18; TEMP 97.3
[2022-09-13] MEDS ORDERED: NALBUPHINE 10 MG/ML (10 ML MDV) IV PRN (06:52)
[2022-09-13] MEDS ORDERED: LACTATED RINGERS 1,000 ML IV SCH (07:00)
[2022-09-13 07:38] LABS: HCT 41.4 % (34.0-46.0); HGB 13.8 gm/dL (11.4-16.0); MCH 29.6 pg (25.0-35.0); MCHC 33.4 g/dL (31.0-37.0); MCV 88.8 fL (80.0-100.0); Mean Platelet Volume 11.2; Platelet Count 196 k/uL (150-450); RBC 4.66 m/uL (3.80-5.40); RDW 14.2 % (11.5-15.5); WBC 13.4 k/uL (3.8-10.6)
[2022-09-13 07:47] LABS: Appearance,Urine Cloudy (Clear); Bilirubin,Urine Negative (Negative); Blood,Urine Small (Negative); Color,Urine Yellow; Glucose,Urine (UA) Negative (Negative); Ketones,Urine Negative (Negative); Leukocyte Esterase,Urine Small (Negative); Mucus,Urine Rare /hpf; Nitrite,Urine Negative (Negative); PH, Urine 6.5 (5.0-8.0); Protein,Urine Trace (Negative); RBC,Urine 1 /hpf (0-5); Specific Gravity,Urine 1.019 (1.001-1.035); Squamous Epithelial Cell,Urine 2 /hpf (0-4); Urobilinogen,Urine <2.0 mg/dL (<2.0); WBC,Urine 3 /hpf (0-5)
[2022-09-13 08:12] LABS: Large Platelets Present; Lymphocytes # (M) 1.34 k/uL (1.0-4.8); Monocytes # (M) 0.27 k/uL (0-1.0); Neutrophils # (M) 11.79 k/uL (1.3-7.7); Neutrophils % (M) 88 %; Nucleated Red Blood Cells 0 /100 WBC (0-0); Total Cells Counted 100
--- NOTE | 2022-09-16 13:11 | P.MSEPDOC ---
Presenting Problems - Arrival Data Date of Arrival on Unit: 09/13/22 Time of Arrival on Unit: 03:30 Mode of Transport: Wheelchair - Complaint OB-Reason for Admission/Chief Complaint: Possible Onset of Labor Comment: possible labor started 09/12/2022 at 1999 Medical History - Information : 1 Para: 0 Term: 0 : 0 Abortions: Spontaneous or Elective: 0 Number of Living Children: 0 - Gestational Age Gestational Age by WILMER (wks/days): 37 Weeks and 5 Days Review of Systems - Review of Systems Constitutional: No problems Breast: No problems ENT: No problems Cardiovascular: No problems Respiratory: No problems Gastrointestinal: No problems Genitourinary: No problems Musculoskeletal: No problems Neurological: No problems Skin: No problems Vital Signs - Temperature Temperature: 97.3 F Temperature Source: Oral - Pulse Left Lateral Pulse Rate: 75 Pulse Assessment Method: Automatic Cuff - Respirations Respiratory Rate: 18 Oxygen Delivery Method: Room Air - Blood Pressure Right Arm Blood Pressure: 129/78 Blood Pressure Mean: 95 Blood Pressure Source: Automatic Cuff Medical Screen Scoring - Cervical Exam Dilation (cm): 1 Effacement (%): 70 Station: 0 Membranes: Intact - Uterine Contractions Frequency From (mins): 3 Frequency To (mins): 5 Intensity: Mild - Assessment - Baby A Baseline FHR: 120 Heart Rate - NICHD Category: Category I (Normal) NST: Reactive Physician Notification - Physician Notified Physician Notified Date: 09/13/22 Physician Notified Time: 08:00 Physician: Keiry Thomas - Notification Comment Comment: pt given IVF, UA and cbc wnl, Cervical exam x 3 with no change, dose of nubaine, pt's pain decreased down to 4/10 from 10/10, contractions less frequent, pt has follow appt in office on Thursday with Dr. Hinojosa Maternal Triage Index - Non-Urgent/Priority 4 Non-Urgent Priority 4: Yes Criteria Met for Priority 4: pt comes in for contractions. Dr thomas given report Disposition - Disposition OB Disposition: Triage, Discharge to home, Written follow up instructions reviewed Discharge Date: 09/13/22 Discharge Time: 08:40 I agree with the RN Medical Screening Exam: Yes Case reviewed; plan agreed upon as documented in EMR&OBIX.: Yes Diagnosis: FALSE LABOR AT OR AFTER 37 COMPLETED WEEKS OF GESTATION
== END 2022-09-13 08:40 | disposition home or self-care (01) ==
LOC: FBPOP 03:05
PROVIDERS: ATTEND Obstetrics & Gynecology
DX: O47.1 False labor at or after 37 completed weeks of gestation (principal); Z3A.37 37 weeks gestation of pregnancy; Z88.5 Allergy status to narcotic agent; Z91.040 Latex allergy status; Z88.8 Allergy status to other drugs, medicaments and biological substances
CPT/HCPCS: 59025; 99213; 85025; 81001; J2300

== ENCOUNTER 2022-09-14 04:10 | Inpatient (IN) | payer OTHER ==
[2022-09-14] MEDS: LACTATED RINGERS 1,000 ML IV SCH ×3 (05:18→20:34)
[2022-09-14] MEDS ORDERED: NALBUPHINE 10 MG/ML (10 ML MDV) IV PRN (05:59)
[2022-09-14] MEDS ORDERED: TERBUTALINE 1 MG/ML VIAL SQ PRN (07:06)
[2022-09-14] MEDS ORDERED: METHYLERGONOVINE 0.2 MG/ML 1 ML AMP IM PRN (07:06)
[2022-09-14] MEDS ORDERED: miSOPROStoL 200 MCG TAB PO PRN (07:06)
[2022-09-14] MEDS ORDERED: OXYTOCIN 10 UNIT/ML 1 ML VIAL IM PRN (07:06)
[2022-09-14] MEDS ORDERED: CARBOPROST TROMETHAMINE 250 MCG/ML 1 ML AMP IM PRN (07:06)
[2022-09-14] MEDS ORDERED: LIDOCAINE 0.5% (PF) 5 MG/ML (50 ML SDV) SQ PRN (07:06)
[2022-09-14] MEDS ORDERED: TRANEXAMIC 1,000 MG/100ML-NACL 1,000 MG in EMPTY BAG 1 BAG IV PRN (07:06)
[2022-09-14] MEDS ORDERED: OXYTOCIN 30 UNITS/500 ML NS 30 UNIT in SALINE 1 500ML.BAG IV SCH ×2 (07:15→11:28)
[2022-09-14] MEDS ORDERED: LACTATED RINGERS 1,000 ML IV SCH (07:15)
[2022-09-14 07:47] LABS: HCT 43.8 % (34.0-46.0); HGB 14.4 gm/dL (11.4-16.0); MCH 29.7 pg (25.0-35.0); MCV 90.1 fL (80.0-100.0); Mean Platelet Volume 10.6; Platelet Count 198 k/uL (150-450); RBC 4.86 m/uL (3.80-5.40); RDW 14.2 % (11.5-15.5); WBC 19.2 k/uL (3.8-10.6)
[2022-09-14 09:11] LABS: Band Neutrophils % 1 %; Lymphocytes # (M) 1.92 k/uL (1.0-4.8); Monocytes # (M) 0.58 k/uL (0-1.0); Neutrophils % (M) 86 %; Nucleated Red Blood Cells 0 /100 WBC (0-0); Total Cells Counted 100
--- NOTE | 2022-09-14 10:03 | P.HPOB ---
History of Present Illness H&P Date: 09/14/22 Chief Complaint: Low back pain, spontaneous rupture membranes This is a 27-year-old female 1 para 0 with an estimated date of confinement of 09/29/2022, estimated gestational age of 37-6/7 weeks, who presents to labor and delivery with complaints of severe lower back pain. She was seen in triage yesterday morning for the same thing and was monitored for several hours with no cervical change. She was given a therapeutic rest with one dose of Nubain and IV hydration and her pain went away. She returned this morning with more severe lower back pain but her cervix was the same when she arrived in to triage. She was observed over an hour and did not make any change but was still in pain and therefore she was given 1 more dose of Nubain this morning. Shortly after that her water did spontaneously rupture with clear fluid noted and positive amnisure. She was not having regular contractions on arrival to triage. care has been with Dr. Pappas and has been uncomplicated up until this point. Patient does have a shunt from her brain to her peritoneum and sees a neurosurgeon at [facility] for this. She has had multiple revisions in the past and is unable to get an epidural because of this. labs: Hepatitis B surface antigen-negative RPR-nonreactive Rubella-nonimmune Blood type-O+ Antibody screen-negative HIV-nonreactive Hemoglobin-13.7 Toxoplasma-negative Hepatitis C-negative Random glucose-79 One hour Glucola-105 Group B streptococcus-negative Obstetrical history: . Gynecologic history: Negative Social history: She is single. She works full-time at [employer]. Review of Systems Constitutional: Denies chills, Denies fever Eyes: denies blurred vision, denies pain Ears, nose, mouth and throat: Denies headache, Denies sore throat Cardiovascular: Denies chest pain, Denies shortness of breath Respiratory: Denies cough Gastrointestinal: Denies abdominal pain, Denies diarrhea, Denies nausea, Denies vomiting Genitourinary: Reports pelvic pain, Reports Musculoskeletal: Reports low back pain Integumentary: Denies pruritus, Denies rash Neurological: Denies numbness, Denies weakness Psychiatric: Denies anxiety, Denies depression Past Medical History Past Medical History: Seizure Disorder Additional Past Medical History / Comment(s): seizure after brain surgery, has Lumbar shunt-. 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 benign tumor removed at 10 months Past Anesthesia/Blood Transfusion Reactions: No Reported Reaction Additional Past Anesthesia/Blood Transfusion Reaction / Comment(s): seizures after brain surgery Past Psychological History: No Psychological Hx Reported Smoking Status: Never smoker Past Alcohol Use History: None Reported Past Drug Use History: None Reported - Past Family History Mother Family Medical History: Hypertension Additional Family Medical History / Comment(s): "aortic aneurysm split in half" was repaired. pat gpa brain tumor Medications and Allergies Home Medications Medication Instructions Recorded Confirmed Type Vit No.179/Iron/Folic 1 each PO DAILY 08/11/22 09/13/22 History [ Tablet] Allergies Allergy/AdvReac Type Severity Reaction Status Date / Time gabapentin [From Neurontin] Allergy Swelling Verified 08/11/22 10:18 latex Allergy Rash/Hives Verified 08/11/22 10:18 phenytoin [From Dilantin] Allergy Rash/Hives Verified 08/11/22 10:18 Exam Osteopathic Statement: *. No significant issues noted on an osteopathic structural exam other than those noted in the History and Physical/Consult. Vital Signs Temp Pulse Resp BP Pulse Ox 09/14/22 08:56 97.5 F L 91 17 144/89 09/14/22 04:58 97.5 F L 91 16 144/89 100 Intake and Output 09/13/22 09/14/22 09/14/22 22:59 06:59 14:59 Other: Weight 81.647 kg 81.647 kg HEENT: Within normal limits Heart: Regular rate and rhythm Lungs: Clear to auscultation bilaterally Abdomen: Cervix: On admission is 1-1/2 cm/70%/-2 station. Positive amnisure positive clear fluid noted upon rupture. heart tones: 130s with moderate variability and accelerations. Occasional rare variable deceleration. Currently contractions are every 2-3 minutes spontaneously. Extremities: Negative Homans Results Result Diagrams: 09/14/22 07:26 Abnormal Lab Results - Last 24 Hours (Table) 09/14/22 Range/Units 07:26 WBC 19.2 H (3.8-10.6) k/uL Neutrophils # (Manual) 16.70 H (1.3-7.7) k/uL Assessment and Plan (1) 37 weeks gestation of Current Visit: Yes Status: Acute Code(s): Z3A.37 - 37 WEEKS GESTATION OF SNOMED Code(s): 50324647 Plan: Patient is admitted for active labor. She did receive 1 dose of Nubain in triage and therefore will have to wait about 4 hours for the next dose or to start on nitrous oxide for pain control. Expectant management. Will be prepared with seizure precautions due to her history of seizures in the past.
--- NOTE | 2022-09-14 11:15 | P.PROBDLV ---
Vaginal Delivery Note - . Vaginal Delivery Note: The patient reached complete dilation fairly rapidly after spontaneous rupture of membranes. She did not receive any oxytocin and delivery. Once reaching complete, she began pushing. 's head came to a crown and then precipitously delivered across the perineum followed by the anterior shoulder. Nose and mouth were bulb suctioned and then with one further push, the remainder the was easily delivered and placed on mother's abdomen. Cord was clamped and cut and infant was taken to warmer for evaluation. A short cord was also noted. Cord blood was obtained secondary to O+ blood type. A viable male was noted with scores of 8 at 1 minute and 9 at 5 minutes and weight of 5 lbs. 10 oz. Placenta delivered shortly thereafter, intact, with a three-vessel cord. A marginal cord insertion was also noted. Placenta will be sent to pathology. Uterus contracted fairly well after oxytocin was given and uterine massage was carried out. Inspection of the perineum revealed bilateral periurethral lacerations that extended up to the vulvar on both sides. These areas were anesthetized with 1% lidocaine and then sutured with 3-0 Vicryl suture in a running locked fashion and 2-0 Vicryl suture in a running locked fashion respectively. Estimated blood loss is approximately 300 mL's. Both mother and infant are in stable condition. Patient does state her back pain is gone at this time.
[2022-09-14] MEDS ORDERED: LANOLIN CREAM 5 GM TUBE TOPICAL PRN (11:28)
[2022-09-14] MEDS ORDERED: IBUPROFEN 600 MG TAB PO PRN (11:28)
[2022-09-14] MEDS ORDERED: HYDROCORTISONE 2.5% RECTAL CREAM 30 GM TUBE RECTAL PRN (11:28)
[2022-09-14] MEDS ORDERED: diphenhydrAMINE 50 MG CAP PO PRN (11:28)
[2022-09-14] MEDS ORDERED: ZOLPIDEM 5 MG TAB PO PRN (11:28)
[2022-09-14] MEDS ORDERED: BENZOCAINE/MENTHOL SPRAY 1 GM/SPRAY AEROSOL TOPICAL PRN (11:28)
[2022-09-14] MEDS ORDERED: MEASLES-MUMPS-RUBELLA VACC/PF 12,500 UNIT/0.5 ML VIAL SQ ONE (11:28)
[2022-09-14] MEDS ORDERED: diphenhydrAMINE 50 MG/ML 1 ML VIAL IVP PRN ×2 (11:28)
[2022-09-14] MEDS ORDERED: SIMETHICONE 80 MG CHEWABLE PO PRN (11:28)
[2022-09-14] MEDS ORDERED: diphenhydrAMINE 25 MG CAP PO PRN (11:28)
[2022-09-14] MEDS: ACETAMINOPHEN TAB 325 MG TAB PO PRN ×2 (14:08→20:50)
[2022-09-14] MEDS: SENNOSIDES-DOCUSATE SODIUM 1 EACH TAB PO SCH (19:29)
[2022-09-15 06:55] LABS: Basophils % (A) 0 %; Eosinophils # (A) 0.1 k/uL (0-0.7); Eosinophils % (A) 1 %; HCT 31.9 % (34.0-46.0); Lymphocytes # (A) 1.9 k/uL (1.0-4.8); Lymphocytes % (A) 15 %; MCH 29.2 pg (25.0-35.0); MCHC 32.3 g/dL (31.0-37.0); MCV 90.4 fL (80.0-100.0); Mean Platelet Volume 11.3; Monocytes # (A) 0.4 k/uL (0-1.0); Monocytes % (A) 4 %; Neutrophils # (A) 9.7 k/uL (1.3-7.7); Neutrophils % (A) 78 %; Platelet Count 162 k/uL (150-450); RBC 3.53 m/uL (3.80-5.40); RDW 14.8 % (11.5-15.5); WBC 12.4 k/uL (3.8-10.6)
[2022-09-15 06:56] LABS: HGB 10.3 gm/dL (11.4-16.0)
[2022-09-15] MEDS: SENNOSIDES-DOCUSATE SODIUM 1 EACH TAB PO SCH (08:00)
--- NOTE | 2022-09-15 08:43 | P.DS ---
Providers Date of admission: 09/14/22 06:37 Expected date of discharge: 09/15/22 Attending physician: Maria Isabel Pappas Primary care physician: Stated None - Discharge Diagnosis(es) (1) Normal vaginal delivery Current Visit: Yes Status: Acute Hospital Course: She presented with spontaneous rupture of membranes and contractions. She underwent a normal vaginal delivery. course was uneventful. She denies nausea, vomiting, chest pain, shortness of breath or calf pain. Patient will be discharged home day #1 in stable condition to follow-up with me in 6 weeks. Plan - Discharge Summary New Discharge Prescriptions: New Ibuprofen [Motrin] 600 mg PO Q6HR PRN #30 tab PRN Reason: Mild Pain (Scale 1 To 3) No Action Vit No.179/Iron/Folic [ Tablet] 1 each PO DAILY Discharge Medication List Vit No.179/Iron/Folic [ Tablet] 1 each PO DAILY 08/11/22 [History] Ibuprofen [Motrin] 600 mg PO Q6HR PRN #30 tab 09/15/22 [Rx] Follow up Appointment(s)/Referral(s): Maria Isabel Pappas DO [Doctor of Osteopathic Medicine] - 6 Weeks Discharge Disposition: HOME SELF-CARE
[2022-09-15 09:32] VITALS: BP 108/63; PULSE 69; RESP 20; TEMP 98
== END 2022-09-15 11:30 | disposition home or self-care (01) | DRG 806 ==
LOC: FBPOP 04:10 → 4FBP 06:37
PROVIDERS: ADMIT Obstetrics & Gynecology; ATTEND Obstetrics & Gynecology
PROC: 10E0XZZ Delivery of Products of Conception, External Approach (ICD-10-PCS; principal; 2022-09-14)
PROC: 0UQMXZZ Repair Vulva, External Approach (ICD-10-PCS; 2022-09-14)
DX: O62.3 Precipitate labor (principal); O99.354 Diseases of the nervous system complicating childbirth; Z37.0 Single live birth; O69.3XX0 Labor and delivery complicated by short cord, not applicable or unspecified; O71.82 Other specified trauma to perineum and vulva; G40.909 Epilepsy, unspecified, not intractable, without status epilepticus; O43.193 Other malformation of placenta, third trimester; Z3A.37 37 weeks gestation of pregnancy; Z82.49 Family history of ischemic heart disease and other diseases of the circulatory system; Z88.1 Allergy status to other antibiotic agents; Z91.040 Latex allergy status
CPT/HCPCS: 59025; 84112; 85025; 86850; 86900; 86901; 96361; 96374; 99215

== ENCOUNTER → 2023-07-10 | Outpatient (CLI) | payer BC, OTHER ==
--- NOTE | 2023-07-11 09:55 | XR ---
EXAMINATION TYPE: XR lumbosacral spine 5 views DATE OF EXAM: 07/10/2023 Comparison: 12/13/2021 Clinical History: 28-year-old female M5450 LBP Findings: There is a lumbar peritoneal shunt catheter with 3 ball antigravity device. Short radiolucent segment of the catheter is redemonstrated. Vertebral body heights are preserved and alignment is maintained. Disc spaces are also preserved. No pars interarticularis defect. 5 lumbar type vertebral bodies. There may be mild early degenerative subarticular sclerosis at the SI joints. Impression: 1. Lumbar spine without vertebral compression collapse or malalignment. 2. Lumbar peritoneal shunt catheter redemonstrated. 3. Possible mild early degenerative change at the SI joints.
== END | disposition home or self-care (01) ==
LOC: RADXRYALE 16:52
PROVIDERS: ATTEND Family Medicine
DX: M54.50 Low back pain, unspecified (principal); Z98.2 Presence of cerebrospinal fluid drainage device
CPT/HCPCS: 72110

== ENCOUNTER → 2023-07-28 | Outpatient (CLI) | payer BC ==
--- NOTE | 2023-07-29 11:39 | MR ---
EXAMINATION TYPE: MR lumbar spine wo con DATE OF EXAM: 07/28/2023 7:37 PM CLINICAL INDICATION:Female, 28 years old with history of M51.37 INTER DISC DEG M54.50 BACK PAIN; PHH, Low back pain x2 months COMPARISON: 12/13/2021. TECHNIQUE: Multi planar, multi sequence imaging was performed utilizing: T1-weighted, T2-weighted, a nd turbo inversion recovery imaging of the lumbar spine. IV Contrast: cc . (None if empty) FINDINGS: Alignment: The lumbar vertebral bodies have preserved heights and alignment. Cord: The conus medullaris and the distal spinal cord appear unremarkable with regards to their signa l intensity and morphology. Bones/Discs: Minimal degeneration changes throughout the spine with osteophyte formation and facet clare int arthropathy. Intervertebral disc signal is maintained. T12-L1: No evidence of significant spinal canal stenosis or neural foraminal stenosis. L1-L2: No evidence of significant spinal canal stenosis or neural foraminal stenosis. L2-L3: No evidence of significant spinal canal stenosis or neural foraminal stenosis. L3-L4: No evidence of significant spinal canal stenosis or neural foraminal stenosis. L4-L5: No evidence of significant spinal canal stenosis or neural foraminal stenosis. L5-S1: The disc is rounded posterior morphology without significant spinal canal stenosis. Facet join t arthropathy with mild bilateral neural foraminal stenosis. No significant spinal canal or neural foraminal stenosis in the remainder of the visualized levels. Other findings: None. IMPRESSION: 1. No definitive evidence of disc herniation or significant spinal canal stenosis. 2. Minimal disc degeneration with associated osteoarthritic changes. No abnormal bony edema.
== END | disposition home or self-care (01) ==
LOC: RADMRIMAIN 18:45
PROVIDERS: ATTEND Family Medicine
DX: M51.37 Other intervertebral disc degeneration, lumbosacral region (principal); M46.1 Sacroiliitis, not elsewhere classified; Z98.2 Presence of cerebrospinal fluid drainage device
CPT/HCPCS: 72148

== ENCOUNTER → 2023-09-16 | Outpatient (CLI) | payer BC ==
[2023-09-16 14:23] VITALS: BP 96/66; PULSE 102; RESP 16
--- NOTE | 2023-09-16 14:55 | P.PAINPG ---
PQRS Measure Charge Sheet Comment: HISTORY OF PRESENT ILLNESS: A 28 yr old female as a referral from Dr Bauer presents today w severe and chronic LBP > 3 mo secondary to DDD, spondylosis and facet arthropathy without myelopathy for evaluation. Pt states pain level is provoked at 7 /10 in intensity, constant, localized in the lumbar spine, predominantly axial, pinching in character w occasional shooting pain towards the buttocks. Pain is provoked by any movement. Pain is alleviated by PT x 8 wks which ended in May 2023, physician guided home exercises/ stretches daily since May 2023, heat, ice, medications (Mentor, Tyl Arthritis), topical, repositioning and rest . Oswestry axial pain score at 25. PMH: OA, Seizure Disorder s/p Brain Surgery PSH: Brain Tumor Resection w brain shunt at age 1, Aortic Aneurysm Repair SH: Negative x3 FH: Mo- HTN All: See list Meds: See list REVIEW OF ORGAN SYSTEMS: CONSTITUTIONAL: No fevers or chills. No recent weight loss. NEUROLOGICAL: + numbness and tingling along the distal extremities. No seizure disorders or headaches. MUSCULOSKELETAL: + pain PSYCHIATRIC: Denies current depression or suicidal thoughts. Physical Examinations : Constitutional : Cooperative , not in acute distress . Neurologic : Cranial nerve II to XII intact. No focal neurological deficits. Psychiatric : alert & oriented x 3. Matching mood & appropriate affect. Judgment & insight intact. Musculoskeletal : Cervical Spine Motor strength in the deltoid and biceps: Normal right side. Normal Left side Motor strength biceps and the wrist extensors: Normal right side . Normal left side Motor strength in the triceps muscle: Normal right side. Normal left side Deep tendon reflexes: Normal at the biceps. Normal at Brachioradialis. Normal at triceps Vertebral body tenderness to deep palpation over Cervical facet loading test: positive bilaterally Spurling test: positive bilaterally Neck distraction test: positive bilaterally Sheila sign: positive bilaterally Lumbar spine Motor strength lower extremities ,thigh and legs 5/5 Right side , 5/5 Left side Deep tendon reflexes : Normal Knee Jerk. Normal Ankle Jerk Vertebral body tenderness over L5 Borrego Test positive Lumbar facet Loading Test: positive Right / positive Left Range of motion of the lumbar spine Flexion 30 degrees, extension 10 degrees Straight Leg Raise test: Left/ Right positive at < 40 degrees Oleksandr test: positive right / positive left. Severe tenderness over the Sacroiliac joint on the Right / Left sides Gaenslen test: positive bilaterally Seated flexion test: positive bilaterally. Sacral spine : Severe tenderness over the Sacroiliac joint: right side / left side Range of motion: Flexion of the lumbar spine <60 degrees Range of motion: Extension of the lumbar spine <20 degrees Gaenslen's Test positive Oleksandr test: positive right side / left side Thigh Thrust Test Sacral Thrust Test Imaging: MRI non contrast of the lumbar spine from 07/28/23 reviewed Assessment/ Plan : Lumbar DDD Recommendation of R paramedian AMANDA L5-S1 #1. May need a series of injections for optimal pain relief. Risks, benefits of procedure discussed and patient verbalized understanding. Admits to anti- coagulant use or medical history of diabetes. Protocol for discontinuation/ continuation of medications kaycee procedure discussed. All questions answered. I have spent greater than 30 minutes on patient care today. Dr Grimes was available by phone for the evaluation of this patient. The time was used to review the medical records including relevant urine studies and Prescription history (MAPs), review of the available imaging, evaluation and examination of the patient, coordination of care with the medical staff and if applicable referring physicians, as well as creation of the medical record PQRS Narrative: Smoking Status Never smoker Hx Alcohol Use (MH) No Home Medications: Ambulatory Orders Vit No.179/Iron/Folic [ Tablet] 1 each PO DAILY 08/11/22 Ibuprofen [Motrin] 600 mg PO Q6HR PRN #30 tab 09/15/22 Controlled Substance Measures - Controlled Substance Measures Is patient prescribed a controlled substance at discharge?: No
== END ==
LOC: PNWHC3 13:43
PROVIDERS: ATTEND Specialist
DX: M46.1 Sacroiliitis, not elsewhere classified (principal); M51.36 Other intervertebral disc degeneration, lumbar region; Z91.040 Latex allergy status; Z88.8 Allergy status to other drugs, medicaments and biological substances; Z98.2 Presence of cerebrospinal fluid drainage device
CPT/HCPCS: 99211

== ENCOUNTER 2023-10-08 06:48 | Day surgery (SDC) | payer BC ==
[2023-10-08 07:14] VITALS: TEMP 97.6
[2023-10-08] MEDS ORDERED: LACTATED RINGERS 1,000 ML IV SCH (07:18)
[2023-10-08] MEDS ORDERED: ROPIVACAINE 5MG/ML 20ML VIAL ONE (07:59)
[2023-10-08] MEDS ORDERED: methylPREDNISolone ACETATE 80 MG/ML 1 ML VIAL ONE (07:59)
[2023-10-08] MEDS ORDERED: IOPAMIDOL M300 15ML VIAL ONE (07:59)
[2023-10-08 08:21] VITALS: BP 119/82; RESP 18
--- NOTE | 2023-10-08 08:21 | P.PCN ---
Description of Procedure: PREOPERATIVE DIAGNOSIS: 1- Lumbar Degenerative Disc Diseases 2-Lumbar spondylosis with Facet arthropathy without myelopathy. 3-lumbar spinal stenosis POSTOPERATIVE DIAGNOSIS: 1-lumbar degenerative disc disease. 2-lumbar spondylosis with facet arthropathy without myelopathy. 3-lumbar spinal stenosis. PROCEDURE Injection of radio contrast material into L5-S1 interspace, interpretation of epidurogram, injection of steroid at L5-S1 epidural space under fluoroscopic guidance. ANESTHESIA: Lidocaine 1% subcutaneously. In OR continuous pulse ox, EKG, blood pressure and verbal communication was maintained with the patient. EBL: Minimal PROCEDURE INDICATION: Before the procedure were discussed with the patient detailed procedure, alternatives, complications including infection, bleeding, nerve damage, paralysis all of which could be permanent. Patient understands and all questions were answered. PROCEDURE DESCRIPTION : After getting consent, patient in OR in prone position. Back was prepped with chlorhexidine and draped in sterile fashion. After injecting 10 mL of 1% lidocaine subcutaneously, a 20-gauge Tuohy needle was introduced at L5-S1 interspace with loss of resistance technique using a syringe filled with air. Negative CSF, negative blood, negative paresthesia. Needle was placed in right paramedial and away from shunt tubing. Needle position was confirmed with AP and lateral view of the fluoroscope. After repeat negative aspiration 2 mL of Omnipaque 200 water soluble contrast was injected. Contrast was noted in the epidural space. No contrast was noted into intrathecal or intravascular space. After repeat negative aspiration 6 mL solution was injected intermittently which consists of 5 mL of preservative-free normal saline mixed with 1 mL of 80 mg Depo-Medrol. Needle was withdrawn intact. Skin was cleansed and Band-Aids was applied. DISPOSITION / PLANS: The patient tolerated the procedure well. No complication. The patient was placed in a supine position and transferred to the recovery area in a stable condition for observation. There was no evidence of lower extremity motor or sensory deficit after the procedure. Patient was discharged from the recovery room after meeting discharge criteria. Home discharge instructions were given to the patient by the staff. The patient was reexamined prior to discharge. The patient will schedule a follow up in the clinic in 2-4 weeks.
[2023-10-08 08:44] VITALS: PULSE 68
--- NOTE | 2023-10-08 10:53 | FL ---
EXAMINATION TYPE: FL guided pain mgmt statistic DATE OF EXAM: 10/08/2023 FLUOROSCOPY 18 SEC FLUORO, DAP .[id number] mGym2, during lumbar epidural steroid injection, 2 images submitted.
== END 2023-10-08 08:46 | disposition home or self-care (01) ==
LOC: ORPAIN 06:48
PROVIDERS: ATTEND Pain Medicine Interventional Pain Medicine
DX: M47.816 Spondylosis without myelopathy or radiculopathy, lumbar region (principal); M48.061 Spinal stenosis, lumbar region without neurogenic claudication; M51.36 Other intervertebral disc degeneration, lumbar region; Z91.040 Latex allergy status; Z88.8 Allergy status to other drugs, medicaments and biological substances
CPT/HCPCS: 81025; 62323; Q9967; J2795; J1010

== ENCOUNTER → 2023-11-17 | Outpatient (CLI) | payer BC | LOC: PNWHC3 13:30 | PROVIDERS: ATTEND Specialist | DX: M54.16 Radiculopathy, lumbar region | CPT/HCPCS: 99211 ==

== ENCOUNTER 2023-12-25 06:13 | Day surgery (SDC) | payer BC ==
[2023-12-25] MEDS ORDERED: LACTATED RINGERS 1,000 ML IV SCH (07:15)
[2023-12-25 07:20] VITALS: TEMP 97
[2023-12-25] MEDS ORDERED: methylPREDNISolone ACETATE 40 MG/ML 1 ML VIAL ONE (07:31)
[2023-12-25] MEDS ORDERED: IOPAMIDOL M200 10 ML VIAL ONE (07:31)
--- NOTE | 2023-12-25 07:38 | P.PCN ---
Date of Procedure: 12/25/23 Description of Procedure: Diagnosis: Lumbar radiculopathy, and lumbar spondylosis without myelopathy Procedure: L5-S1 Inter-Laminar Lumbar Epidural Steroid Injection under biplanar fluoroscopy Surgeon: Jaime Rueda Anesthesia: Local: 1% Lidocaine, IV sedation : None. Complications: None Estimated blood loss: None Specimens removed: none. Fluoroscopic image: Saved to patient EMR. Indications for Procedure: The patient has been suffering from lower back pain and leg pain. Inadequate pain control with pharmacologic regimen. Came here for lumbar epidural steroid injection for better pain control. Procedure and Findings: The patient was seen and examined in the holding area. The written informed consent was obtained after explaining the risks, benefits, and alternatives of the procedure to the patient. The patient was brought to the procedure room and was placed in the prone position on the operating room table. A pillow was placed under the abdomen to reduce lumbar lordosis. The anesthesia was started as mentioned above and monitoring was done with noninvasive blood pressure cuff, EKG and pulse oximetry. The skin preparation was done with ChloraPrep and draping was done in usual sterile fashion. Sterile technique was observed throughout the procedure. Under fluoroscopic guidance, the L5- S1 inter-laminar space was identified. 4 ml of 1% Lidocaine was injected with a 25 gauge needle to achieve adequate local anesthesia of the skin and subcutaneous tissue. A 20 gauge, 3.5 inch Tuohy type epidural needle was placed and advanced up to the epidural space using loss of resistance technique and fluoroscopic guidance. No paresthesia was noted. A negative aspiration was confirmed and then 2 ml Isovue was injected. A good dye spread was seen in the epidural space and it was negative for any intrathecal, intraneural or intravascular spread. A total of 8 ml solution containing Depo-Medrol 40 mg mixed with 7 mL of preservative-free Normal Saline was injected slowly with intermittent aspiration. The needle was removed intact, area was cleaned and bandage was applied. Disposition : The patient tolerated the procedure very well. The patient was transferred to the recovery room and remained stable until discharged home. The patient was given detailed discharge instructions for infection, bleeding, headache , leg weakness, and increased pain at the injection site, and was advised to seek immediate medical attention should significant side effects develop. The patient will be followed up with our Pain Clinic within 4 weeks for follow-up visit.
[2023-12-25 07:46] VITALS: BP 119/78; RESP 14
[2023-12-25 07:58] VITALS: PULSE 65
--- NOTE | 2023-12-25 09:12 | FL ---
EXAMINATION TYPE: FL guided pain mgmt statistic DATE OF EXAM: 12/25/2023 7:43 AM COMPARISON: Pre Operative Images if available both CT/MRI or plain film CLINICAL INDICATION: Female, 28 years old with history of M54.16; TECHNIQUE: FL guided pain mgmt statistic, multiple fluoroscopic images provided for procedure. Total fluoroscopy time: 5.7 seconds Total submitted images to PACS: 2 DAP: [id number] mGym2 Gycm2 uGym2 cGycm2 or equivalent. FINDINGS: Fluoroscopic images during injection for pain management demonstrate multilevel degeneration changes throughout the spine. No evidence for fracture. No acute process identified. IMPRESSION: 1. No evidence for intraoperative complication. 2. Please see the operative/procedural note for further details. [facility], , 12/25/2023 9:10 AM
== END 2023-12-25 08:01 | disposition home or self-care (01) ==
LOC: ORPAIN 06:13
DX: M54.16 Radiculopathy, lumbar region
CPT/HCPCS: 62323; 81025

== ENCOUNTER → 2024-01-14 | Outpatient (CLI) | payer BC ==
[2024-01-14 13:41] VITALS: BP 124/77; PULSE 75; RESP 16
--- NOTE | 2024-01-14 15:06 | P.PAINPG ---
PQRS Measure Charge Sheet Comment: HISTORY OF PRESENT ILLNESS: A 28 yr old female presents today w severe and chronic LBP > 3 mo secondary to radiculopathy, spondylosis and facet arthropathy without myelopathy for evaluation s/p AMANDA L5-S1 #2. Pt states she experienced 50 % pain relief x 3 wks s/p procedure. Pt states pain level is provoked at 8 /10 in intensity, constant, localized in the lumbar spine, predominantly axial, sharp in character w occasional shooting pain towards the buttocks. Pain is provoked by standing for periods > 20 min. Pain is alleviated by PT x 8 wks which ended in May 2023, physician guided home exercises/ stretches daily since May 2023, heat, ice, medications, topical, repositioning and rest . Interventional procedures include AMANDA L5-S1 x2 Medications include [place], Tyl Arthritis REVIEW OF ORGAN SYSTEMS: CONSTITUTIONAL: No fevers or chills. No recent weight loss. NEUROLOGICAL: + numbness and tingling along the distal extremities. No seizure disorders or headaches. MUSCULOSKELETAL: + pain PSYCHIATRIC: Denies current depression or suicidal thoughts. Physical Examinations : Constitutional : Cooperative , not in acute distress . Neurologic : Cranial nerve II to XII intact. No focal neurological deficits. Psychiatric : alert & oriented x 3. Matching mood & appropriate affect. Judgment & insight intact. Musculoskeletal : Cervical Spine Motor strength in the deltoid and biceps: Normal right side. Normal Left side Motor strength biceps and the wrist extensors: Normal right side . Normal left side Motor strength in the triceps muscle: Normal right side. Normal left side Deep tendon reflexes: Normal at the biceps. Normal at Brachioradialis. Normal at triceps Vertebral body tenderness to deep palpation over Cervical facet loading test: positive bilaterally Spurling test: positive bilaterally Neck distraction test: positive bilaterally Sheila sign: positive bilaterally Lumbar spine Motor strength lower extremities ,thigh and legs 5/5 Right side , 5/5 Left side Deep tendon reflexes : Normal Knee Jerk. Normal Ankle Jerk Vertebral body tenderness over L5 Borrego Test positive Lumbar facet Loading Test: positive Right / positive Left L4-L5, L5-S1 Range of motion of the lumbar spine Flexion 30 degrees, extension 10 degrees Straight Leg Raise test: Left/ Right positive at < 40 degrees Oleksandr test: positive right / positive left. Severe tenderness over the Sacroiliac joint on the Right / Left sides Gaenslen test: positive bilaterally Seated flexion test: positive bilaterally. Sacral spine : Severe tenderness over the Sacroiliac joint: right side / left side Range of motion: Flexion of the lumbar spine <60 degrees Range of motion: Extension of the lumbar spine <20 degrees Gaenslen's Test positive Oleksandr test: positive right side / left side Thigh Thrust Test Sacral Thrust Test Imaging: MRI non contrast of the lumbar spine from 07/28/23 reviewed Assessment/ Plan : Lumbar radiculopathy Recommendation of CARA MBB L4-L5/ L5-S1 #1. Risks, benefits of procedure discussed and patient verbalized understanding. Admits to anti- coagulant use or medical history of diabetes. Protocol for discontinuation/ continuation of medications kaycee procedure discussed. Minimal anesthesia including Fentanyl and Versed if clinically indicated. All questions answered. I have spent greater than 30 minutes on patient care today. Dr Grimes was available by phone for the evaluation of this patient. The time was used to review the medical records including relevant urine studies and Prescription history (MAPs), review of the available imaging, evaluation and examination of the patient, coordination of care with the medical staff and if applicable referring physicians, as well as creation of the medical record - Pain Location Lower Back Non-Pharmacological Interventions: Physical Therapy Pharmacological Interventions: Epidural, PRN Medication, Scheduled Medication PQRS Narrative: Smoking Status Never smoker Hx Alcohol Use (MH) No Home Medications: Ambulatory Orders HYDROcodone/APAP 7.5-325MG [[place] 7.5-325] 1 tab PO Q4-6H PRN 12/25/23 Controlled Substance Measures - Controlled Substance Measures Is patient prescribed a controlled substance at discharge?: No
== END ==
LOC: PNWHC3 13:11
PROVIDERS: ATTEND Specialist
CPT/HCPCS: 99211

== ENCOUNTER 2024-02-05 12:28 | Day surgery (SDC) | payer BC ==
[2024-02-05 12:52] VITALS: TEMP 97.5
[2024-02-05] MEDS: IV FLUID CONTINUATION 1,000 ML IV ONE (12:58)
[2024-02-05] MEDS: LACTATED RINGERS 1,000 ML IV SCH (12:58)
[2024-02-05] MEDS ORDERED: MIDAZOLAM 2 MG/2 ML VIAL ONE (13:33)
[2024-02-05] MEDS ORDERED: ROPIVACAINE 5MG/ML 20ML VIAL ONE (13:33)
[2024-02-05] MEDS ORDERED: fentaNYL (PF) 50 MCG/ML 2 ML AMP ONE (13:33)
--- NOTE | 2024-02-05 13:49 | P.PCN ---
Date of Procedure: 02/05/24 Procedure(s) Performed: PREOPERATIVE DIAGNOSIS : 1- Lumbar spondylosis with Facet Arthropathy with out myelopathy . 2- Lumber degenerative disc disease POSTOPERATIVE DIAGNOSIS: 1- Lumbar spondylosis with Facet Arthropathy without myelopathy . 2- Lumber degenerative disc disease PROCEDURE: Diagnostic bilateral L3 , L4 , and L5 medial branch block under fluoroscopy guidance(fluoroscopy images available in the radiology Department ) ( To target the facet joint between Bilateral L4-5 , and L5- S1 )#1sT ANESTHESIA: moderate sedation with intravenous Versed 2 mg and Fentanyl 100 mcg.(Sedation start time 13:33 ,end time 13:48 ) EBL: Minimal COMPLICATION: None PROCEDURE INDICATION: Chronic low back pain secondary to Facet arthropathy unresponsive to conservative treatment. PROCEDURE DESCRIPTION: the patient was seen and identified in the preop holding area , risks and benefits and possible complications of the procedure and alternative were discussed with the patient, and the patient agreed to proceed with the procedure and signed the consent and vital signs monitored during the procedure and fluoroscopy was used to maximize the benefit and accuracy of the needle placement, and sedation was given to decrease patient anxiety, patient was taken to the procedure room and placed in prone position vital signs monitored in the back prepped with chlorhexidine X3 then under strict sterile technique using a right oblique fluoroscopy ,the junction of the transverse process and the superior articulating process of the right L3 , L4 , and L5 vertebra which corresponding to the fluoroscopy image of the eye of the Vipul dog on the block side for the medial branches and subsequently , after local infiltration of skin and subcu tissuies with Ropivacaine 0.5 % , one mL at each level ,then 22-gauge Quincke-type needles , 3 needle was used , each one of them placed at the junction of the base of the transverse process and the superior articular process at the appropriate level, and the needle was advanced until the periosteum contacted, needle placement confirmed with AP oblique and lateral view and after appropriate needle placement confirmed, and after negative aspiration for heme and CSF and there was no paresthesia 1-1/2 mL of Ropivacaine 0.5% used , then half mL injected at each level after negative aspiration the needle subsequently removed and the same procedure repeated for the left side at L3,L4, and L5 levels. At the end of the procedure and the needles removed and a bandage applied after the skin was cleaned the cleaning solution patient taken to recovery room in stable condition and monitors in the recovery room for 20-30 minutes and discharged home in stable condition after discharge criteria met and patient will follow up with the pain clinic in 2-4 weeks
[2024-02-05] MEDS: IV FLUID CONTINUATION 800 ML IV ONE (13:56)
[2024-02-05 13:58] VITALS: RESP 16
[2024-02-05 14:37] VITALS: BP 110/65; PULSE 74
--- NOTE | 2024-02-05 15:10 | FL ---
EXAMINATION TYPE: FL guided pain mgmt statistic DATE OF EXAM: 02/05/2024 1:56 PM COMPARISON: Pre Operative Images if available both CT/MRI or plain film CLINICAL INDICATION: Female, 28 years old with history of PAIN; TECHNIQUE: FL guided pain mgmt statistic, multiple fluoroscopic images provided for procedure. Total fluoroscopy time: 30.3 seconds Total submitted images to PACS: 4 DAP: [id number] mGym2 Gycm2 uGym2 cGycm2 or equivalent. FINDINGS: Fluoroscopic images during injection for pain management demonstrate multilevel degeneration changes throughout the spine. No evidence for fracture. No acute process identified. IMPRESSION: 1. No evidence for intraoperative complication. 2. Please see the operative/procedural note for further details. [facility], , 02/05/2024 3:07 PM
== END 2024-02-05 14:40 | disposition home or self-care (01) ==
LOC: ORPAIN 12:28
PROVIDERS: ATTEND Specialist
DX: M47.816 Spondylosis without myelopathy or radiculopathy, lumbar region (principal); Z91.040 Latex allergy status; Z88.9 Allergy status to unspecified drugs, medicaments and biological substances; Z88.8 Allergy status to other drugs, medicaments and biological substances
CPT/HCPCS: 81025; 64493; 64494 ×2; J2250; J3010; J2795; 99152

== ENCOUNTER → 2024-02-25 | Outpatient (CLI) | payer BC ==
[2024-02-25 13:06] VITALS: BP 126/85; PULSE 92; RESP 20; TEMP 98
--- NOTE | 2024-02-25 15:23 | P.PAINPG ---
PQRS Measure Charge Sheet Comment: HISTORY OF PRESENT ILLNESS: A 28 yr old female presents today w severe and chronic LBP > 3 mo secondary to radiculopathy, spondylosis and facet arthropathy without myelopathy for evaluation s/p BL MBB L4-L5/ L5-S1 #1. Pt states she experienced 80 % pain relief x 3 hrs s/p procedure. Pt states pain level is provoked at 8 /10 in intensity, constant, localized in the lumbar spine, predominantly axial, sharp in character w occasional shooting pain towards the buttocks. Pain is provoked by standing for periods > 20 min. Pain is alleviated by PT x 5 wks which ended in Jan 2024, physician guided home exercises/ stretches daily since May 2023, heat, ice, medications, topical, repositioning and rest . Interventional procedures include AMANDA L5-S1 x2 Medications include [place], Tyl Arthritis REVIEW OF ORGAN SYSTEMS: CONSTITUTIONAL: No fevers or chills. No recent weight loss. NEUROLOGICAL: + numbness and tingling along the distal extremities. No seizure disorders or headaches. MUSCULOSKELETAL: + pain PSYCHIATRIC: Denies current depression or suicidal thoughts. Physical Examinations : Constitutional : Cooperative , not in acute distress . Neurologic : Cranial nerve II to XII intact. No focal neurological deficits. Psychiatric : alert & oriented x 3. Matching mood & appropriate affect. Judgment & insight intact. Musculoskeletal : Cervical Spine Motor strength in the deltoid and biceps: Normal right side. Normal Left side Motor strength biceps and the wrist extensors: Normal right side . Normal left side Motor strength in the triceps muscle: Normal right side. Normal left side Deep tendon reflexes: Normal at the biceps. Normal at Brachioradialis. Normal at triceps Vertebral body tenderness to deep palpation over Cervical facet loading test: positive bilaterally Spurling test: positive bilaterally Neck distraction test: positive bilaterally Sheila sign: positive bilaterally Lumbar spine Motor strength lower extremities ,thigh and legs 5/5 Right side , 5/5 Left side Deep tendon reflexes : Normal Knee Jerk. Normal Ankle Jerk Vertebral body tenderness over L5 Borrego Test positive Lumbar facet Loading Test: positive Right / positive Left L4-L5, L5-S1 Range of motion of the lumbar spine Flexion 30 degrees, extension 10 degrees Straight Leg Raise test: Left/ Right positive at < 40 degrees Oleksandr test: positive right / positive left. Severe tenderness over the Sacroiliac joint on the Right / Left sides Gaenslen test: positive bilaterally Seated flexion test: positive bilaterally. Sacral spine : Severe tenderness over the Sacroiliac joint: right side / left side Range of motion: Flexion of the lumbar spine <60 degrees Range of motion: Extension of the lumbar spine <20 degrees Gaenslen's Test positive Oleksandr test: positive right side / left side Thigh Thrust Test Sacral Thrust Test Imaging: MRI non contrast of the lumbar spine from 07/28/23 reviewed Assessment/ Plan : Lumbar radiculopathy Recommendation of CARA MBB L4-L5/ L5-S1 #2. Risks, benefits of procedure discussed and patient verbalized understanding. Admits to anti- coagulant use or medical history of diabetes. Protocol for discontinuation/ continuation of medications kaycee procedure discussed. Minimal anesthesia including Fentanyl and Versed if clinically indicated. All questions answered. I have spent greater than 30 minutes on patient care today. Dr Grimes was available by phone for the evaluation of this patient. The time was used to review the medical records including relevant urine studies and Prescription history (MAPs), review of the available imaging, evaluation and examination of the patient, coordination of care with the medical staff and if applicable referring physicians, as well as creation of the medical record PQRS Narrative: Smoking Status Never smoker Hx Alcohol Use (MH) No Home Medications: Ambulatory Orders HYDROcodone/APAP 7.5-325MG [[place] 7.5-325] 1 tab PO Q4-6H PRN 12/25/23 Acetaminophen [Tylenol Arthritis] 2 tab PO DIRECTED PRN 02/03/24 Controlled Substance Measures - Controlled Substance Measures Is patient prescribed a controlled substance at discharge?: No
== END ==
LOC: PNWHC3 12:44
PROVIDERS: ATTEND Specialist
DX: M54.16 Radiculopathy, lumbar region (principal); Z91.040 Latex allergy status; Z88.8 Allergy status to other drugs, medicaments and biological substances
CPT/HCPCS: 99211

== ENCOUNTER 2024-03-29 06:50 | Day surgery (SDC) | payer BC ==
[2024-03-29 07:18] VITALS: RESP 16; TEMP 97.6
[2024-03-29] MEDS ORDERED: LACTATED RINGERS 1,000 ML IV SCH (07:21)
[2024-03-29] MEDS: SODIUM CHLORIDE 0.9% 250 ML IV ONE (07:22)
[2024-03-29] MEDS ORDERED: ROPIVACAINE 5MG/ML 20ML VIAL ONE (08:08)
[2024-03-29] MEDS ORDERED: fentaNYL (PF) 50 MCG/ML 2 ML AMP ONE (08:08)
[2024-03-29] MEDS ORDERED: MIDAZOLAM 2 MG/2 ML VIAL ONE (08:08)
[2024-03-29] MEDS: IV FLUID CONTINUATION 500 ML IV ONE (08:40)
--- NOTE | 2024-03-29 08:55 | P.PCN ---
Description of Procedure: Preprocedure diagnosis. 1. Lumbar spondylosis with facet joint arthropathy without myelopathy. 2. Lumbar degenerative disc disease. Postprocedure diagnosis. As above. Procedure done. Bilateral diagnostic block with local anesthetics at L3, L4, L5 medial branch to target the facet joint L4- 5 and L5-S1 with fluoroscopic guidan ce (fluoroscopy images are available in the radiology department) . Anesthesia. Moderate sedation with intravenous Versed 2 mg and 100 micg fentanyl and local infiltration with local anesthetics. In OR, continuous pulse ox, EKG, blood pressure and verbal communication was maintained. Time. Blood loss. Minimal. Indication. The patient has low back pain secondary to lumbar facet joint arthropathy. Discussed the procedure and alternative and complications which includes infection, bleeding, nerve damage, paralysis ,aggravation of pain. Patient understands and all questions were answered. Patient iunderstands that if any pain relief occurs it will last for a few hours to a few days maximum. Procedure description. After getting consent patient was taken in the OR in prone position. Back prepped with chlorhexidine and draped in sterile fashion. After injecting 5 mL of plain 1% lidocaine subcutaneously, a 22-gauge spinal needle was introduced under tunnel vision of the fluoroscope at the junction of the superior articular process with RIGHT ala of the sacrum. I was very careful to avoid needles going any close to catheter of her intrathecal peritoneal shunt. With slight oblique fluoroscope, after injecting 5 mL of plain 1% lidocaine subcutaneously, a 22-gauge spinal needle was introduced under tunnel vision of the fluoroscope at the junction of the superior articular process with RIGHT L5 transverse process, junction of the superior articular process with the RIGHT L4 transverse process. Negative CSF, negative blood, negative paresthesia. After needle position confirmation by AP and crosstable lateral view, after negative aspiration, half milliliters of solution were injected at each point. Total 1- 1/2 mL of solution was injected on the right side which consists of 0.5% ropivacaine. In exactly same way, LEFT sided injections were done at the following 3 points. Junction of the superior articular process with left ala of the sacrum, junction of the superior articular process with the left L5 transverse process, junction of the superior articular process with left L4 transverse process using 0.5 mL of solution at each point. Total 1-1/2 mL of solution was injected on the left side which consists of 0.5% ropivacaine . Spinal needles were taken out and bandages were applied. Disposition. Patient tolerated the procedure well. No complication. Discharged home in stable condition
[2024-03-29 08:56] VITALS: BP 114/76; PULSE 67
--- NOTE | 2024-03-29 09:56 | FL ---
EXAMINATION TYPE: FL guided pain mgmt statistic DATE OF EXAM: 03/29/2024 FLUOROSCOPY bilat lumbar facet block 3 levels, 47sec fl time, DAP=. 5 images are submitted. [facility], Workstation: MARIA R, 03/29/2024 9:54 AM
== END 2024-03-29 09:11 | disposition home or self-care (01) ==
LOC: ORPAIN 06:50
PROVIDERS: ATTEND Pain Medicine Interventional Pain Medicine
DX: M47.816 Spondylosis without myelopathy or radiculopathy, lumbar region (principal); Z88.8 Allergy status to other drugs, medicaments and biological substances; Z88.9 Allergy status to unspecified drugs, medicaments and biological substances; Z91.040 Latex allergy status
CPT/HCPCS: 81025; 64493; 64494 ×2; J2250; J3010; J2795; 99152; 99153

== ENCOUNTER → 2024-04-20 | Outpatient (CLI) | payer BC ==
[2024-04-20 13:12] VITALS: BP 130/82; PULSE 99; RESP 16
--- NOTE | 2024-04-20 15:46 | P.PAINPG ---
PQRS Measure Charge Sheet Comment: HISTORY OF PRESENT ILLNESS: A 28 yr old female presents today w severe and chronic LBP > 3 mo secondary to radiculopathy, spondylosis and facet arthropathy without myelopathy for evaluation s/p BL MBB L4-L5/ L5-S1 #2. Pt states she experienced 100 % pain relief x 2 days s/p procedure. Pt states pain level is provoked at 8 /10 in intensity, constant, localized in the lumbar spine, predominantly axial, sharp in character w occasional shooting pain towards the buttocks. Pain is provoked by standing for periods > 20 min. Pain is alleviated by PT x 5 wks which ended in Jan 2024, physician guided home exercises/ stretches daily since May 2023, heat, ice, medications, topical, repositioning and rest . Interventional procedures include AMANDA L5-S1 x2, BL MBB L3-L5 x2 Medications include [place], Tyl Arthritis REVIEW OF ORGAN SYSTEMS: CONSTITUTIONAL: No fevers or chills. No recent weight loss. NEUROLOGICAL: + numbness and tingling along the distal extremities. No seizure disorders or headaches. MUSCULOSKELETAL: + pain PSYCHIATRIC: Denies current depression or suicidal thoughts. Physical Examinations : Constitutional : Cooperative , not in acute distress . Neurologic : Cranial nerve II to XII intact. No focal neurological deficits. Psychiatric : alert & oriented x 3. Matching mood & appropriate affect. Judgment & insight intact. Musculoskeletal : Cervical Spine Motor strength in the deltoid and biceps: Normal right side. Normal Left side Motor strength biceps and the wrist extensors: Normal right side . Normal left side Motor strength in the triceps muscle: Normal right side. Normal left side Deep tendon reflexes: Normal at the biceps. Normal at Brachioradialis. Normal at triceps Vertebral body tenderness to deep palpation over Cervical facet loading test: positive bilaterally Spurling test: positive bilaterally Neck distraction test: positive bilaterally Sheila sign: positive bilaterally Lumbar spine Motor strength lower extremities ,thigh and legs 5/5 Right side , 5/5 Left side Deep tendon reflexes : Normal Knee Jerk. Normal Ankle Jerk Vertebral body tenderness over L5 Borrego Test positive Lumbar facet Loading Test: positive Right / positive Left L4-L5, L5-S1 Range of motion of the lumbar spine Flexion 30 degrees, extension 10 degrees Straight Leg Raise test: Left/ Right positive at < 40 degrees Oleksandr test: positive right / positive left. Severe tenderness over the Sacroiliac joint on the Right / Left sides Gaenslen test: positive bilaterally Seated flexion test: positive bilaterally. Sacral spine : Severe tenderness over the Sacroiliac joint: right side / left side Range of motion: Flexion of the lumbar spine <60 degrees Range of motion: Extension of the lumbar spine <20 degrees Gaenslen's Test positive Oleksandr test: positive right side / left side Thigh Thrust Test Sacral Thrust Test Imaging: MRI non contrast of the lumbar spine from 07/28/23 reviewed Assessment/ Plan : Lumbar radiculopathy Recommendation of BL RFA L4-L5/ L5-S1. Risks, benefits of procedure discussed and patient verbalized understanding. Admits to anti- coagulant use or medical history of diabetes. Protocol for discontinuation/ continuation of medications kaycee procedure discussed. Minimal anesthesia including Fentanyl and Versed if clinically indicated. All questions answered. I have spent greater than 30 minutes on patient care today. Dr Grimes was available by phone for the evaluation of this patient. The time was used to review the medical records including relevant urine studies and Prescription history (MAPs), review of the available imaging, evaluation and examination of the patient, coordination of care with the medical staff and if applicable referring physicians, as well as creation of the medical record - Pain Location Lower Back Non-Pharmacological Interventions: Heat, Ice Pharmacological Interventions: PRN Medication, Topical Medication PQRS Narrative: Smoking Status Never smoker Narcotic Agreement Date Signed 02/25/24 Hx Alcohol Use (MH) No Home Medications: Ambulatory Orders HYDROcodone/APAP 7.5-325MG [[place] 7.5-325] 1 tab PO Q4-6H PRN 12/25/23 Acetaminophen [Tylenol Arthritis] 2 tab PO DIRECTED PRN 02/03/24 Controlled Substance Measures - Controlled Substance Measures Is patient prescribed a controlled substance at discharge?: No
== END ==
LOC: PNWHC3 12:38
PROVIDERS: ATTEND Specialist
DX: M54.16 Radiculopathy, lumbar region (principal); Z88.8 Allergy status to other drugs, medicaments and biological substances; Z91.040 Latex allergy status
CPT/HCPCS: 99211

== ENCOUNTER → 2024-06-15 | Outpatient (CLI) | payer BC ==
[2024-06-15 14:22] VITALS: BP 119/75; PULSE 84; RESP 16; TEMP 97.3
--- NOTE | 2024-06-15 15:00 | P.PAINPG ---
Objective - Vital Signs Vital signs: Vital Signs Temp 97.3 F L 06/15/24 14:19 Pulse 84 06/15/24 14:19 Resp 16 06/15/24 14:19 BP 119/75 06/15/24 14:19 Pulse Ox 96 06/15/24 14:19 FiO2 Intake & Output 06/14/24 06/15/24 06/15/24 18:59 06:59 18:59 Weight 69.4 kg PQRS Measure Charge Sheet Mode of Arrival: Ambulatory Comment: HISTORY OF PRESENT ILLNESS: A 28 yr old female presents today w severe and chronic LBP > 3 mo secondary to radiculopathy, spondylosis and facet arthropathy without myelopathy for evaluation s/p BL RFA L4-L5/ L5-S1. Pt states she experienced 0 % pain relief s/p procedure. Pt states pain level is provoked at 8 /10 in intensity, constant, localized in the lumbar spine, predominantly axial, sharp in character w occasional shooting pain towards the buttocks. Pain is provoked by standing for periods > 20 min. Pain is alleviated by PT x 5 wks which ended in Jan 2024, physician guided home exercises/ stretches daily since May 2023, heat, ice, medications, topical, repositioning and rest . Interventional procedures include AMANDA L5-S1 x2, BL RFA L3-L5 (06/14) Medications include [place], Tyl Arthritis REVIEW OF ORGAN SYSTEMS: CONSTITUTIONAL: No fevers or chills. No recent weight loss. NEUROLOGICAL: + numbness and tingling along the distal extremities. No seizure disorders or headaches. MUSCULOSKELETAL: + pain PSYCHIATRIC: Denies current depression or suicidal thoughts. Physical Examinations : Constitutional : Cooperative , not in acute distress . Neurologic : Cranial nerve II to XII intact. No focal neurological deficits. Psychiatric : alert & oriented x 3. Matching mood & appropriate affect. Judgment & insight intact. Musculoskeletal : Cervical Spine Motor strength in the deltoid and biceps: Normal right side. Normal Left side Motor strength biceps and the wrist extensors: Normal right side . Normal left side Motor strength in the triceps muscle: Normal right side. Normal left side Deep tendon reflexes: Normal at the biceps. Normal at Brachioradialis. Normal at triceps Vertebral body tenderness to deep palpation over Cervical facet loading test: positive bilaterally Spurling test: positive bilaterally Neck distraction test: positive bilaterally Sheila sign: positive bilaterally Lumbar spine Motor strength lower extremities ,thigh and legs 5/5 Right side , 5/5 Left side Deep tendon reflexes : Normal Knee Jerk. Normal Ankle Jerk Vertebral body tenderness over L5 Borrego Test positive Lumbar facet Loading Test: positive Right / positive Left L4-L5, L5-S1 Range of motion of the lumbar spine Flexion 30 degrees, extension 10 degrees Straight Leg Raise test: Left/ Right positive at < 40 degrees Oleksandr test: positive right / positive left. Severe tenderness over the Sacroiliac joint on the Right / Left sides Gaenslen test: positive bilaterally Seated flexion test: positive bilaterally. Sacral spine : Severe tenderness over the Sacroiliac joint: right side / left side Range of motion: Flexion of the lumbar spine <60 degrees Range of motion: Extension of the lumbar spine <20 degrees Gaenslen's Test positive Oleksandr test: positive right side / left side Thigh Thrust Test Sacral Thrust Test Imaging: MRI non contrast of the lumbar spine from 07/28/23 reviewed Assessment/ Plan : Lumbar radiculopathy Will follow up w an orthopedic surgeon for additional treatment options. All questions answered. I have spent greater than 30 minutes on patient care today. Dr Grimes was available by phone for the evaluation of this patient. The time was used to review the medical records including relevant urine studies and Prescription history (MAPs), review of the available imaging, evaluation and examination of the patient, coordination of care with the medical staff and if applicable referring physicians, as well as creation of the medical record - Pain Location Bilateral Lower Back Non-Pharmacological Interventions: Heat, Ice, Inactivity, Massage, Physical Therapy, Position/Reposition, Relaxation Technique, Sitting Pharmacological Interventions: Block, Epidural, PRN Medication, Scheduled Medication, Topical Medication PQRS Narrative: Smoking Status Never smoker Narcotic Agreement Date Signed 02/25/24 Blood Pressure 119/75 Pain Intensity [Bilateral 8 Lower Back] Scale Used Numeric (1 - 10) Hx Alcohol Use (MH) No Home Medications: Ambulatory Orders HYDROcodone/APAP 7.5-325MG [[place] 7.5-325] 1 tab PO Q4-6H PRN 12/25/23 Acetaminophen [Tylenol Arthritis] 2 tab PO DIRECTED PRN 02/03/24 Controlled Substance Measures - Controlled Substance Measures Is patient prescribed a controlled substance at discharge?: No
== END ==
LOC: PNWHC3 14:07
PROVIDERS: ATTEND Specialist
DX: M54.16 Radiculopathy, lumbar region (principal); Z91.040 Latex allergy status; Z88.8 Allergy status to other drugs, medicaments and biological substances
CPT/HCPCS: 99211

== ENCOUNTER → 2024-07-16 | Outpatient (CLI) | payer BC ==
--- NOTE | 2024-07-16 08:58 | MR ---
INDICATION: Patient age:Female; 29 years old; Reason for study: M54.16 RADICULOPATHY; PHH. COMPARISONS: MR lumbar spine 07/28/2023, lumbosacral spine radiograph 12/13/2021. TECHNIQUE: Multi planar, multi sequence imaging was performed utilizing: T1-weighted, T2-weighted, a nd turbo inversion recovery imaging of the lumbar spine. The patient was not given contrast. FINDINGS: Alignment: The lumbar vertebral bodies have preserved heights and alignment. Cord: The conus medullaris appears unremarkable with regards to signal intensity and morphology. Lumb ar peritoneal shunt redemonstrated entering the spinal canal at the L3-L4 level. Tip terminates at th e L3-4 level. There is some clumping of the spinal nerves to the right aspect of the thecal sac at th e L2-L3 level. Bones/Discs: Normal bone marrow signal. Intervertebral disc signal is maintained. No abnormal STIR si gnal to suggest edema. T12-L1: No evidence of significant spinal canal stenosis or neural foraminal stenosis. L1-L2: No evidence of significant spinal canal stenosis or neural foraminal stenosis. L2-L3: No evidence of significant spinal canal stenosis or neural foraminal stenosis. L3-L4: No evidence of significant spinal canal stenosis or neural foraminal stenosis. L4-L5: No evidence of significant spinal canal stenosis or neural foraminal stenosis. Minimal bilater al facet arthropathy. L5-S1: No evidence of significant spinal canal stenosis or neural foraminal stenosis. No significant spinal canal or neural foraminal stenosis in the remainder of the visualized levels. IMPRESSION: 1. No evidence of disc herniation or significant spinal canal stenosis. No significant degenerative disc disease. 2. Lumbar peritoneal shunt catheter demonstrated with some clumping of the lumbar nerves to the righ t aspect of the thecal sac at the L2-L3 level where the shunt catheter enters the thecal sac. The valarie nt catheter appears to demonstrate some mild mass effect upon the adjacent lumbar nerves. Raises the possibility of arachnoiditis from adhesion versus mass effect. [facility], , 07/16/2024 8:55 AM
== END | disposition home or self-care (01) ==
LOC: RADMRIMAIN 07:22
PROVIDERS: ATTEND Nurse Practitioner Family
DX: M47.26 Other spondylosis with radiculopathy, lumbar region (principal)
CPT/HCPCS: 72148

== ENCOUNTER → 2024-07-29 | Outpatient (CLI) | payer BC ==
--- NOTE | 2024-07-30 09:37 | XR ---
EXAMINATION TYPE: XR sacroiliac joint comp BILAT DATE OF EXAM: 07/29/2024 4:08 PM COMPARISON: None CLINICAL INDICATION: Female, 29 years old with history of M533 SAC [place] PAIN; Y[facility], pain TECHNIQUE: The sacroiliac joints were examined in a frontal and oblique projections. FINDINGS: There is no evidence of fracture or dislocation. There is no soft tissue abnormality. No a bnormal calcifications are present. Multilevel degenerative changes of the lower spine. Mild degenera tion changes of the sacroiliac joints bilaterally with osteophyte formation. Catheter terminating in the pelvis. IMPRESSION: 1. No acute osseous pathology. 2. Mild sacroiliac joint degeneration. [facility], , 07/30/2024 9:35 AM
== END | disposition home or self-care (01) ==
LOC: RADXRYALE 15:48
PROVIDERS: ATTEND Nurse Practitioner Family
DX: M53.3 Sacrococcygeal disorders, not elsewhere classified (principal)
CPT/HCPCS: 72202